=== PATIENT | male | born 1950 | race Caucasian/White ===

== ENCOUNTER 2022-07-20 09:57 | Outpatient (CLI) | payer MEDICARE, SELFPAY ==
[2022-07-20 11:52] LABS: Cholesterol* 134 mg/dL (90-199); Triglycerides* 50 mg/dL (40-149)
[2022-07-20 11:53] LABS: HDL Cholesterol* 69 mg/dL (>=40); LDL Cholesterol Calculated 55 mg/dL (<100)
== END 2022-07-20 09:58 | disposition home or self-care (01) ==
PROVIDERS: PCP Internal Medicine; Visit Provider Internal Medicine
DX: E78.5 Hyperlipidemia, unspecified (principal)
CPT/HCPCS: 80061

== ENCOUNTER 2023-05-20 10:15 | Outpatient (RCR) | payer MEDICARE, SELFPAY | END 2023-09-17 23:59 | disposition home or self-care (01) | PROVIDERS: PCP Internal Medicine; Visit Provider Internal Medicine | DX: M54.2 Cervicalgia (principal); M62.838 Other muscle spasm; Z74.09 Other reduced mobility; R29.898 Other symptoms and signs involving the musculoskeletal system; R29.3 Abnormal posture; Z51.89 Encounter for other specified aftercare | CPT/HCPCS: 97110; 97140; 97162 ==

== ENCOUNTER 2023-08-12 14:59 | Outpatient (CLI) | payer MEDICARE, SELFPAY | END 2023-08-12 15:00 | disposition home or self-care (01) | LOC: NFLDREF 15:00 | PROVIDERS: PCP Internal Medicine; Visit Provider Internal Medicine | DX: R10.13 Epigastric pain (principal) | CPT/HCPCS: 80053 ==

== ENCOUNTER 2023-08-24 07:41 | Outpatient (CLI) | payer MEDICARE, SELFPAY ==
--- NOTE | 2023-08-24 09:12 | W.ANESCHARGE ---
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
== END 2023-08-24 07:42 | disposition home or self-care (01) ==
LOC: OP CLINIC 07:42
PROVIDERS: PCP Internal Medicine; Visit Provider Internal Medicine
DX: R12 Heartburn (principal)
CPT/HCPCS: 00731; 43239; 88305; 99100; J2704

== ENCOUNTER 2023-09-07 09:57 | Outpatient (CLI) | payer MEDICARE, SELFPAY | END 2023-09-07 09:58 | disposition home or self-care (01) | LOC: NFLDREF 09-16 12:36 | PROVIDERS: PCP Internal Medicine; Referring Provider Internal Medicine; Visit Provider Internal Medicine | DX: E78.5 Hyperlipidemia, unspecified (principal) | CPT/HCPCS: 80061 ==

== ENCOUNTER 2023-12-13 09:50 | Outpatient (CLI) | payer MEDICARE, SELFPAY | END 2023-12-13 09:51 | disposition home or self-care (01) | LOC: NFLDREF 12-15 02:52 | PROVIDERS: PCP Internal Medicine; Referring Provider Internal Medicine; Visit Provider Internal Medicine | DX: E78.5 Hyperlipidemia, unspecified (principal) | CPT/HCPCS: 80061 ==

== ENCOUNTER 2024-09-11 09:26 | Outpatient (CLI) | payer MEDICARE, SELFPAY | END 2024-09-11 09:27 | disposition home or self-care (01) | LOC: NFLDREF 09-13 02:56 | PROVIDERS: PCP Internal Medicine; Referring Provider Internal Medicine; Visit Provider Internal Medicine | DX: E78.5 Hyperlipidemia, unspecified (principal) | CPT/HCPCS: 80061 ==

== ENCOUNTER 2024-10-13 09:06 | Outpatient (CLI) | payer MEDICARE, SELFPAY | END 2024-10-13 09:07 | disposition home or self-care (01) | LOC: NFLDREF 10-19 11:25 | PROVIDERS: PCP Internal Medicine; Referring Provider Internal Medicine; Visit Provider Internal Medicine | DX: E78.5 Hyperlipidemia, unspecified (principal) | CPT/HCPCS: 80061 ==

== ENCOUNTER 2024-11-09 07:55 | Outpatient (CLI) | payer MEDICARE, SELFPAY ==
--- NOTE | 2024-11-09 09:19 | P.ANES_ITS ---
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
--- NOTE | 2024-11-09 09:19 | W.ANESCHARGE ---
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
--- NOTE | 2024-11-09 10:12 | P.ANES_ITS ---
Anesthesia Charges Start Date/Time Anesthesia Start Date: 11/09/24 Anesthesia Start Time: 08:35 Stop Date/Time Anesthesia Stop Date: 11/09/24 Anesthesia Stop Time: 09:17 Summary Extremes of Age - Over 70 or under 1: MDA Coding CPT Codes CPT Codes: ANES LWR INTST NDSC NOS - 00362 ([id number]) P2 - PATIENT W/MILD SYST DISEASE, QK - LUMBER DRIVER 2-4 CNCRNT ANES PROC, QX - BILLING SUPERVISOR SVC W/ MD MED DIRECTION Additional Codes: Summary - Extremes of Age - Over 70 or under 1: MDA ([id number])
--- NOTE | 2024-11-09 10:12 | W.ANESCHARGE ---
Anesthesia Charges Start Date/Time Anesthesia Start Date: 11/09/24 Anesthesia Start Time: 08:35 Stop Date/Time Anesthesia Stop Date: 11/09/24 Anesthesia Stop Time: 09:17 Summary Extremes of Age - Over 70 or under 1: MDA Coding CPT Codes CPT Codes: ANES LWR INTST NDSC NOS - 43194 ([id number]) P2 - PATIENT W/MILD SYST DISEASE, QK - SENIOR SOFTWARE ENGINEERING MANAGER 2-4 CNCRNT ANES PROC, QX - FREIGHT CLERK SVC W/ MD MED DIRECTION Additional Codes: Summary - Extremes of Age - Over 70 or under 1: MDA ([id number])
--- OUTSIDE RECORDS SUMMARY | 2024-11-10 00:49 | XMS_ITS | Encounter Summary ---
Author Organization [facility] Address [address] [place] [address] Care Team Providers Care Concrete Mixer Operator Name Role Phone Kyle Benitez MD Primary Care Provider [phone] France Baptiste MD Primary Care Provider [phone] Kyle Benitez MD Primary Care Provider [phone] Angeles House MD Primary Care Provider Patito Herron DPM, Podiatry /Foot and Ankle Surgery Unavailable Reason for Visit * Reason Comments Refill Request zocor 20mg Encounter Details Date Type Department Care Team (Late st Contact Info) Description 10/08/2003 Refill M [address] [place] [address] Kyle Benitez MD XXX RESIGNED XXX [address] [place] [address] Refill Request (zocor 20mg) Social History Tobacco Use Types Packs/Day Years Used Date Smoking Tobacco: Never Alcohol Use Standard Drinks/Week Comments Yes 0 (1 standard drink = 0.6 oz pur e alcohol) occasional Sex and Gender Information Value Date Recorded Sex Assigned at Not on file 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 Thank you. * Telephone Encounter - 11/29/2003 8:31 AM CDTLast refill date 08/30/2003. * Telephone Encounter - 10/08/2003 4:41 PM CDTZocor no longer covered by insurance. would you be willing to switch to either crestor or Lipitor? Aleena RN * Telephone Encounter - 10/08/2003 4:39 PM CDTCALL RECEIVED. Contact: documented in this encounter Plan of Treatment Not on file documented as of this encounter Visit Diagnoses Not on filedocumented in this encounter Care Teams Concrete Mixer Operator Relationship Specialty Start Date End Date Kyle Benitez MD XXX RESIGNED XXX [address] [place] [phone] PCP - General 07/08/01 10/04/14 France Baptiste MD XXX RESIGNED XXX [address] [place] [phone] PCP - General Internal Medicine 10/05/14 10/16/14 Kyle Benitez MD XXX RESIGNED XXX [address] [place] [phone] PCP - General Internal Medicine 10/17/14 07/01/17 Angeles House MD [facility] - [address] [id number] PCP - General Internal Medicine 03/20/23 Patito Herron, SHILA, Podiatry/Foot and Ankle Surgery [address] [address] Assigned Musculoskeletal Provider 01/14/24 documented as of this encounter
--- OUTSIDE RECORDS SUMMARY | 2024-11-10 00:50 | XMS_ITS | Encounter Summary ---
Author Organization [facility] Address [address] [place] [address] Care Team Providers Care Production Hardener Name Role Phone Kyle Benitez MD Primary Care Provider [phone] France Baptiste MD Primary Care Provider [phone] Kyle Benitez MD Primary Care Provider [phone] Angeles House MD Primary Care Provider Patito Herron DPM, Podiatry /Foot and Ankle Surgery Unavailable Encounter Details Date Type Department Care Team (Late st Contact Info) Description 02/25/2014 [facility] Medical Advice [address] [place] [address] Kyle Benitez MD XXX RESIGNED XXX [address] [facility] [address] [place] [address] Social History Tobacco Use Types Packs/Day Years Used Date Smoking Tobacco: Never Smokeless Tobacco: Never Alcohol Use Standard Drinks/Week Comments Yes 0 (1 standard drink = 0.6 oz pur e alcohol) occasional Sex and Gender Information Value Date Recorded Sex Assigned at Not on file 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 Gender Identity Not on file Sexual Orientation Not on file documented as of this encounter Plan of Treatment Not on file documented as of this encounter Visit Diagnoses Not on filedocumented in this encounter Care Teams Production Hardener Relationship Specialty Start Date End Date Kyle Benitez MD XXX RESIGNED XXX [address] [place] [phone] PCP - General 07/08/01 10/04/14 France Baptiste MD XXX RESIGNED XXX [address] [place] [phone] PCP - General Internal Medicine 10/05/14 10/16/14 Kyle Benitez MD XXX RESIGNED XXX [address] [place] [phone] PCP - General Internal Medicine 10/17/14 07/01/17 Angeles House MD [facility] [address] [address] PCP - General Internal Medicine 03/20/23 Patito Herron DPM, Podiatry/Foot and Ankle Surgery [address] [place] [address] Assigned Musculoskeletal Provider 01/14/24 documented as of this encounter
--- OUTSIDE RECORDS SUMMARY | 2024-11-10 00:50 | XMS_ITS | Data Portability ---
Author Organization [facility], [employer] Address [address] [place] [address] Assessment Encounter Date Assessment Date Assessment LastModified by Organization Details LastModified Time 08/20/2020 08/20/2020 Discussed normal H.pylori test result with pt. Pt to RTC for fasting labs in September: CBC CMP Advanced lipids Urine for dipstick with reflex Patient understands and agrees w/ the plan. All questions addressed. [email or web address] Not available 08/23/2020 08:31:55 04/16/2021 04/16/2021 CBC, CMP, TSH + 4, T3, PSA, Advanced lipids [email or web address] Not available 04/16/2021 12:43:09 Plan of Treatment Reminders Order Date Submit Date Provider Last Modified By Organization Details Last Modified Time Details Appointments None recorded. Lab CBC w/ auto diff 2020 021 [facility] [facility], [address], [place], [address], 09:03:35 CMP, serum or plasma 2020 021 [employer] [facility], [address] [place], [address], 09:03:34 urinalysis, dipstick 2020 021 [facility] Main Office, [address], [address], [place], [address], 11:53:13 urinalysis, microscopic 2020 DAMON [employer] [facility], [address], [place], [address], 09:03:36 Referral None recorded. Procedures None recorded. Surgeries None recorded. Imaging None recorded. Medication Orders rosuvastati n 5 mg tablet 2020 [facility][id number], [address] [place], [place], [phone], 11:21:35 ezetimibe 10 mg tablet 2020 [facility] #[id number], [address] [place], [place], [id number], 11:21:10 Patient TargetsNo targets recorded. Patient InstructionsNo instructions recorded. Reason for Referral None Reported. Results Created Date Observation Date Name Description Value Unit Range Abnormal Flag Note LastModifiedBy Organization Detail LastModifiedTime 08/06/1908/07/2020 H pylor i urea breat h test, co2 infra red helicobacter pylori, urea breath test NOT DETECT ED not detect ed normal Antim icrob ials, anabel n pump inhib itors , and bismu th prepa ratio ns are known to suppr ess H. pylor i, and inges tion of these prior to H. pylor i diagn ostic testi ng may lead to false negat agustina resul ts. If clini court indic ated, the test may be repea joaquin on a new speci men obtai godwin two weeks after disco ntinu ing treat ment. Howev er, a posit agustina resul t is still clini court valid . Not Available [facility] [address], [place], [address], 08/07/2020 15:00:09 10/09/1910/09/2020 CMP, serum or plasm a glucose 94 mg/dL 65-99 normal Fasti ng refer ence inter ernie Not Available [facility] [place] [facility] [address], [place], [address], 10/09/2020 09:03:34 10/09/1910/09/2020 CMP, serum or plasm a urea nitrogen (BUN) 16 mg/dL 7-25 normal Not Available [facility] [address], [place], [address], 10/09/2020 09:03:34 10/09/19 21 10/09/2020 CMP, serum or plasm a creatinine 0.88 mg/dL 0.70-1 .18 normal For patie nts >49 years of age, the refer ence limit for Creat inine is appro ximat chidi 13% highe r for peopl e ident ified as Afric an-Am darshana n. Not Available [facility] [address], [place], [address], 10/09/2020 09:03:34 10/09/19 21 10/09/2020 CMP, serum or plasm a eGFR non-afr. azerbaijani 86 mL/mi n/1.7 3m2 > or = 60 normal Not Available [facility] [address], [place], [address], 10/09/2020 09:03:34 10/09/19 21 10/09/2020 CMP, serum or plasm a eGFR 99 mL/mi n/1.7 3m2 > or = 60 normal Not Available [facility] [address], [place], [address], 10/09/2020 09:03:34 10/09/1910/09/2020 CMP, serum or plasm a BUN/creatini ne ratio NOT APPLIC ABLE (calc ) 6-22 Not Available [facility] [address], [place], [address], 10/09/2020 09:03:34 10/09/19 21 10/09/2020 CMP, serum or plasm a sodium 139 mmol/ L 135-14 6 normal Not Available [facility] [address], [place], [address], 10/09/2020 09:03:34 10/09/19 21 10/09/2020 CMP, serum or plasm a potassium 4.2 mmol/ L 3.5-5. 3 normal Not Available [facility] [address], [place], [address], 10/09/2020 09:03:34 10/09/19 21 10/09/2020 CMP, serum or plasm a chloride 102 mmol/ L 98-110 normal Not Available [facility] [address], [place], [address], 10/09/2020 09:03:34 10/09/1910/09/2020 CMP, serum or plasm a carbon dioxide 28 mmol/ L 20-32 normal Not Available [facility] [address], [place], [address], 10/09/2020 09:03:34 10/09/1910/09/2020 CMP, serum or plasm a calcium 9.4 mg/dL 8.6-10 .3 normal Not Available [facility] [address], [place], [address], 10/09/2020 09:03:34 10/09/1910/09/2020 CMP, serum or plasm a protein, total 6.5 g/dL 6.1-8. 1 normal Not Available [facility] [address], [place], [address], 10/09/2020 09:03:34 10/09/1910/09/2020 CMP, serum or plasm a albumin 4.2 g/dL 3.6-5. 1 normal Not Available [facility] [address], [place], [address], 10/09/2020 09:03:34 10/09/19 21 10/09/2020 CMP, serum or plasm a globulin 2.3 g/dL_ (calc ) 1.9-3. 7 normal Not Available [facility] [address], [place], [address], 10/09/2020 09:03:34 10/09/19 21 10/09/2020 CMP, serum or plasm a albumin/glob ulin ratio 1.8 (calc ) 1.0-2. 5 normal Not Available [facility] [address], [place], [address], 10/09/2020 09:03:34 10/09/1910/09/2020 CMP, serum or plasm a bilirubin, total 0.7 mg/dL 0.2-1. 2 normal Not Available [facility] [address], [place], [address], 10/09/2020 09:03:34 10/09/1910/09/2020 CMP, serum or plasm a alkaline phosphatase 58 U/L 35-144 normal Not Available [facility] [employer] [facility] [address], [place], [address], 10/09/2020 09:03:34 10/09/1910/09/2020 CMP, serum or plasm a AST 24 U/L 10-35 normal Not Available [facility] [address], [place], [address], 10/09/2020 09:03:34 10/09/1910/09/2020 CMP, serum or plasm a ALT 32 U/L 9-46 normal Not Available [employer] [facility] [address], [place], [address], 10/09/2020 09:03:34 10/09/19 21 10/09/2020 CBC w/ auto diff white blood cell count 5.2 thous and/u L 3.8-10 .8 normal Not Available [facility] [address], [place], [address], 10/09/2020 09:03:35 10/09/19 21 10/09/2020 CBC w/ auto diff red blood cell count 5.05 mu on/uL 4.20-5 .80 normal Not Available [facility] [address], [place], [address], 10/09/2020 09:03:35 10/09/19 21 10/09/2020 CBC w/ auto diff hemoglobin 15.6 g/dL 13.2-1 7.1 normal Not Available [facility] [address], [place], [address], 10/09/2020 09:03:35 10/09/19 21 10/09/2020 CBC w/ auto diff hematocrit 47.1 % 38.5-5 0.0 normal Not Available [facility] [address], [place], [address], 10/09/2020 09:03:35 10/09/19 21 10/09/2020 CBC w/ auto diff MCV 93.3 fL 80.0-1 00.0 normal Not Available [facility] [address], [place], [address], 10/09/2020 09:03:35 10/09/19 21 10/09/2020 CBC w/ auto diff MCH 30.9 pg 27.0-3 3.0 normal Not Available [facility] [address], [place], [address], 10/09/2020 09:03:35 10/09/19 21 10/09/2020 CBC w/ auto diff MCHC 33.1 g/dL 32.0-3 6.0 normal Not Available [facility] [address], [place], [address], 10/09/2020 09:03:35 10/09/19 21 10/09/2020 CBC w/ auto diff RDW 13.1 % 11.0-1 5.0 normal Not Available [facility] [address], [place], [address], 10/09/2020 09:03:35 10/09/19 21 10/09/2020 CBC w/ auto diff platelet count 218 thous and/u L 140-40 0 normal Not Available [facility] [address], [place], [address], 10/09/2020 09:03:35 10/09/19 21 10/09/2020 CBC w/ auto diff MPV 9.2 fL 7.5-12 .5 normal Not Available [facility] [address], [place], [address], 10/09/2020 09:03:35 10/09/19 21 10/09/2020 CBC w/ auto diff absolute neutrophils 2964 cells /uL 1500-7 800 normal Not Available [facility] [address], [place], [address], 10/09/2020 09:03:35 10/09/19 21 10/09/2020 CBC w/ auto diff absolute lymphocytes 1482 cells /uL 850-39 00 normal Not Available [facility] [address], [place], [address], 10/09/2020 09:03:35 10/09/19 21 10/09/2020 CBC w/ auto diff absolute monocytes 551 cells /uL 200-95 0 normal Not Available [facility] [address], [place], [address], 10/09/2020 09:03:35 10/09/19 21 10/09/2020 CBC w/ auto diff absolute eosinophils 182 cells /uL 15-500 normal Not Available [facility] [address], [place], [address], 10/09/2020 09:03:35 10/09/19 21 10/09/2020 CBC w/ auto diff absolute basophils 21 cells /uL 0-200 normal Not Available [facility] [address], [place], [address], 10/09/2020 09:03:35 10/09/19 21 10/09/2020 CBC w/ auto diff neutrophils 57 % normal Not Available [facility] [address], [place], [address], 10/09/2020 09:03:35 10/09/19 21 10/09/2020 CBC w/ auto diff lymphocytes 28.5 % normal Not Available [facility] [address], [place], [address], 10/09/2020 09:03:35 10/09/19 21 10/09/2020 CBC w/ auto diff monocytes 10.6 % normal Not Available [facility] [address], [place], [address], 10/09/2020 09:03:35 10/09/19 21 10/09/2020 CBC w/ auto diff eosinophils 3.5 % normal Not Available [facility] [address], [place], [address], 10/09/2020 09:03:35 10/09/19 21 10/09/2020 CBC w/ auto diff basophils 0.4 % normal Not Available [facility] [address], [place], [address], 10/09/2020 09:03:35 10/09/19 21 10/09/2020 urina lysis , micro scopi c WBC NONE SEEN /hpf < or = 5 normal Not Available [facility] [address], [place], [address], 10/09/2020 09:03:36 10/09/19 21 10/09/2020 urina lysis , micro scopi c RBC NONE SEEN /hpf < or = 2 normal Not Available [facility] [address], [place], [address], 10/09/2020 09:03:36 10/09/19 21 10/09/2020 urina lysis , micro scopi c squamous epithelial cells NONE SEEN /hpf < or = 5 normal Not Available [facility] [address], [place], [address], 10/09/2020 09:03:36 10/09/19 21 10/09/2020 urina lysis , micro scopi c bacteria NONE SEEN /hpf none seen normal Not Available [facility] [address], [place], [address], 10/09/2020 09:03:36 10/09/19 21 10/09/2020 urina lysis , micro scopi c hyaline cast NONE SEEN /lpf none seen normal Not Available [facility] [address], [place], [address], 10/09/2020 09:03:36 10/09/19 21 10/13/2020 lipid panel , serum cholesterol, total 138 mg/dL <200 Not Available [facility] [address], [place], [address], 10/13/2020 16:00:46 10/09/19 21 10/13/2020 lipid panel , serum HDL cholesterol 61 mg/dL >39 Not Available [facility] [address], [place], [address], 10/13/2020 16:00:46 10/09/19 21 10/13/2020 lipid panel , serum triglyceride s 105 mg/dL <150 Not Available [facility] [address], [place], [address], 10/13/2020 16:00:46 10/09/19 21 10/13/2020 lipid panel , serum LDL-choleste rol 58 mg/dL _(nathan c) <100 Iraj able range <100 mg/dL for prima ry preve ntion ; <70 mg/dL for patie nts with CHD or diabe tic patie nts with >= 2 CHD risk facto rs. LDL-C is now calcu lated using the [facility] calcu latio n, which is a valid ated novel metho d provi ding spencer r accur acy than the Fried charles equat ion in the estim ation of LDL-C . Kerri n SS et al. ZAHEER. 2013; 310(1 9): 2060- 2067 (http ://ed ati on.Zoodak. [employer]/f aq/FA Q164) LDL-C is now calcu lated using the [facility] calcu latio n, which is a valid ated novel metho d provi ding spencer r accur acy than the Fried charles equat ion in the estim ation of LDL-C . Kerri n SS et al. ZAHEER. 2013; 310(1 9): 2060- 2067 (http ://ed ati on.Zoodak. [employer]/f aq/FA Q164) Not Available [facility] [place] [facility] [address], [place], [address], 10/13/2020 16:00:46 10/09/19 21 10/13/2020 lipid panel , serum chol/HDLC ratio 2.3 calc <3.6 Not Available [facility] [place] [facility] [address], [place], [address], 10/13/2020 16:00:46 10/09/1910/13/2020 lipid panel , serum non HDL cholesterol 77 mg/dL _(nathan c) <130 For patie nts with diabe salomón plus 1 major ASCVD risk facto r, treat ing to a non-H DL-C goal of <100 mg/dL (LDL- C of <70 mg/dL ) is consi dered a thera peuti c optio n. For patie nts with diabe salomón plus 1 major ASCVD risk facto r, treat ing to a non-H DL-C goal of <100 mg/dL (LDL- C of <70 mg/dL ) is consi dered a thera peuti c optio n. Not Available [facility] [place] [facility] [address], [place], [address], 10/13/2020 16:00:46 10/09/1910/13/2020 lipid panel , serum LDL particle number 925 nmol/ L <1138 Relat agustina Risk: Optim al <1138 ; Moder ate 1138- 1409; High >1409 . Refer ence Range : <1138 nmol/ L. Not Available [facility] [place] [facility] [address], [place], [address], 10/13/2020 16:00:46 10/09/1910/13/2020 lipid panel , serum LDL small 168 nmol/ L <142 high Relat agustina Risk: Optim al <142; Moder ate 142-2 19; High >219. Refer ence Range : <142 nmol/ L. Not Available [facility] [place] [facility] [address], [place], [address], 10/13/2020 16:00:46 10/09/1910/13/2020 lipid panel , serum LDL medium 194 nmol/ L <215 Relat agustina Risk: Optim al <215; Moder ate 215-3 01; High >301. Refer ence Range : <215 nmol/ L. Not Available [facility] [place] [facility] [address], [place], [address], 10/13/2020 16:00:46 10/09/19 21 10/13/2020 lipid panel , serum HDL large 6555 nmol/ L >6729 low Relat agustina Risk: Optim al >6729 ; Moder ate 6729- 5353; High <5353 . Refer ence Range : >6729 nmol/ L. Not Available [facility] [place] [facility] [address], [place], [address], 10/13/2020 16:00:46 10/09/19 21 10/13/2020 lipid panel , serum LDL pattern A patte rn A Relat agustina Risk: Optim al Patte rn A; High Patte rn B. Refer ence Range : Patte rn A. Not Available [facility] [place] [facility] [address], [place], [address], 10/13/2020 16:00:46 10/09/19 21 10/13/2020 lipid panel , serum LDL peak size 218.7 angst rom >222.9 low Relat agustina Risk: Optim al >222. 9; Moder ate 222.9 -217. 4; High <217. 4. Refer ence Range : >222. 9 Angst rom. Adult cardi ovasc ular event risk categ ory cut point s (opti mal, moder ate, high) are based on an adult [place] refer ence popul ation plus two large cohor t study popul ation s. Assoc iatio n betwe en lipop rotei n subfr actio ns and cardi ovasc ular event s is based on Ronda moore et al. ATVB. 2009; 29:19 75. For addit ional infor starr gilliam e refer to http: //anjelica hobson.Que stDia gnost ics.c om/fa q/FAQ 134 (This link is being provi ded for infor may nal/e ducat ional purpo ses only. ) This test is perfo rmed by an [employer] gorge antony This test was devel oped and its perfo rmanc e phoebe cteri stics deter mined by [facility] It has not been clear ed or appro kp by the U.S. FDA. [facility] is regul ated under Clini nathan Labor atory Impro vemen t Amend ments (CLIA ) as quali fied to perfo rm high- compl exity testi ng. This test is used for clini nathan purpo ses. It shoul d not be regar ded as inves tigat ional or for resea rch. Not Available [facility] [place] [facility] [address], [place], [address], 10/13/2020 16:00:46 10/09/19 21 10/13/2020 lipid panel , serum apolipoprote in B 64 mg/dL <90 Risk: Optim al <90 mg/dL ; Moder ate 90-11 9 mg/dL ; High >= 120 mg/dL ; Cardi ovasc ular event risk categ ory cut point s (opti mal, moder ate, high) are based on Natio nal Lipid Assoc iatio n recom primo huertas TA et al. J of Clin Lipid . 2015; 9: 129-1 69 and Joy JOHNSON et al. Endoc r Pract . 2017; 23([place] ppl 2):1- 87. Not Available [facility] [place] [facility] [address], [place], [address], 10/13/2020 16:00:46 10/09/19 21 10/13/2020 lipid panel , serum lipoprotein (A) 35 nmol/ L <75 Risk: Optim al <75 nmol/ L; Moder ate 75-12 5 nmol/ L; High >125 nmol/ L. Cardi ovasc ular event risk categ ory cut point s (opti mal, moder ate, high) are based on Eddie Cantu. JACC 2017; 69:69 2-711 . Not Available [facility] [place] [facility] [address], [place], [address], 10/13/2020 16:00:46 05/1810/13/2020 lipid panel , serum hs CRP 1.3 mg/L <1.0 high The AHA/C DC Guide lines recom mend hs-CR P range s for ident ifyin g Relat agustina Cardi ovasc ular Risk in patie nts ages >17 years : <1.0 mg/L Lower Relat agustina Cardi ovasc ular Risk; 1.0-3 .0 mg/L [place] ge Relat agustina Cardi ovasc ular Risk; 3.1-1 0.0 mg/L Highe r Relat agustina Cardi ovasc ular Risk. For patie nts with highe r cardi ovasc ular risk, consi ruth retes ting in 1-2 weeks to exclu de a benig n trans ient eleva tion secon erika to infec tion or infla mmati on from the basel ine CRP value . Persi stent eleva tions of >10.0 mg/L upon retes ting may be assoc iated with infec tion and infla mmati on. The AHA/C DC recom menda tions are based on Pears on TA et al. Circu latio n. 2003; 107:4 99-51 1. For ages >17 Years : hs-CR P mg/L Risk Accor ding to AHA/C DC Guide lines <1.0 Lower relat agsutina cardi ovasc ular risk. 1.0-3 .0 [place] ge relat agustina cardi ovasc ular risk. 3.1-1 0.0 Highe r relat agustina cardi ovasc ular risk. Consi ruth retes ting in 1 to 2 weeks to exclu de a benig n trans ient eleva tion in the basel ine CRP value secon erika to infec tion or infla mmati on. >10.0 Persi stent eleva tion, upon retes ting, may be assoc iated with infec tion and infla mmati on. Not Available [facility] [place] [facility] [facility] [address], [place], [address], 10/13/2020 16:00:46 10/09/1910/13/2020 lipid panel , serum LP pla2 activity 75 nmol/ min/m L <124 Relat agustina Risk: Optim al <=123 nmol/ min/m L; High >123 nmol/ min/m L.Thi s test is perfo rmed by an enzym scott antony This test was devliliana mistryed and its perfo rmanc e phoebe cteri stics deter mined by [facility]. It has not been clear ed or appro kp by the [place].S. FDA. [facility] is regul ated under Clini nathan Labor atory Impro vemen t Amend ments (CLIA ) as quali fied to perfo rm high- compl exity testi ng. This test is used for clini nathan purpo ses. It shoul d not be regar ded as inves tigat ional or for resea rch. Not Available [facility] [place] [facility] [address], [place], [address], 10/13/2020 16:00:46 10/09/19 21 10/08/2020 urina lysis , dipst ick Glucose - Negati ve Not Available Main Office [address], [place], [address], 10/04/2020 14:51:28 10/09/19 21 10/08/2020 urina lysis , dipst ick Bilirubin - Negati ve Not Available Main Office [address], [place], [address], 10/04/2020 14:51:28 10/09/19 21 10/08/2020 urina lysis , dipst ick Ketone - Negati ve Not Available Main Office [address], [place], [address], 10/04/2020 14:51:28 10/09/19 21 10/08/2020 urina lysis , dipst ick Specific [place] 1.010 Not Available Main O ffice [address], [place], [address], 10/04/2020 14:51:28 10/09/19 21 10/08/2020 urina lysis , dipst ick Blood +/- Not Available Main Offic e [address], [place], [address], 10/04/2020 14:51:28 10/09/19 21 10/08/2020 urina lysis , dipst ick pH 6.0 Not Available Main Offic e [address], [place], [address], 10/04/2020 14:51:28 10/09/19 21 10/08/2020 urina lysis , dipst ick Protein - Negati ve Not Available Main Office [address], [place], [address], 10/04/2020 14:51:28 10/09/19 21 10/08/2020 urina lysis , dipst ick Urobilinogen 0.2(3. 5) Not Available Main Office [address], [place], [address], 10/04/2020 14:51:28 10/09/19 21 10/08/2020 urina lysis , dipst ick Nitrite - Negati ve Not Available Main Office [address], [place], [address], 10/04/2020 14:51:28 10/09/19 21 10/08/2020 urina lysis , dipst ick Leukocytes - Not Available Main Of fice [address], [place], [address], 10/04/2020 14:51:28 10/09/19 21 10/08/2020 urina lysis , dipst ick Appearance Clear Not Available Main Of fice [address], [place], [address], 10/04/2020 14:51:28 10/09/19 21 10/08/2020 urina lysis , dipst ick Color Yellow Not Available Main Offic e [address], [place], [address], 10/04/2020 14:51:28 04/16/20 21 04/17/2021 TSH+F REE T4 TSH 1.52 mIU/L 0.40-4 .50 normal Not Available [facility] [address], [place], [address], 04/17/2021 09:44:28 04/16/20 21 04/17/2021 TSH+F REE T4 T4, free 1.0 NG/dL 0.8-1. 8 normal Not Available [facility] [address], [place], [address], 04/17/2021 09:44:28 04/16/20 21 04/17/2021 COMPR EHENS AGUSTINA METAB OLIC PANEL glucose 77 mg/dL 65-99 normal Fasti ng refer ence inter ernie Not Available [facility] [address], [place], [address], 04/17/2021 09:44:29 04/16/20 21 04/17/2021 COMPR EHENS AGUSTINA METAB OLIC PANEL urea nitrogen (BUN) 16 mg/dL 7-25 normal Not Available [facility] [address], [place], [address], 04/17/2021 09:44:29 04/16/20 21 04/17/2021 COMPR EHENS AGUSTINA METAB OLIC PANEL creatinine 0.83 mg/dL 0.70-1 .18 normal For patie nts >49 years of age, the refer ence limit for Creat inine is appro ximat chidi 13% highe r for peopl e ident ified as Afric an-Am darshana n. Not Available [facility] [facility] [address], [place], [address], 04/17/2021 09:44:29 04/16/20 21 04/17/2021 COMPR EHENS AGUSTINA METAB OLIC PANEL eGFR non-afr. azerbaijani 88 mL/mi n/1.7 3m2 > or = 60 normal Not Available [facility] [address], [place], [address], 04/17/2021 09:44:29 04/16/20 21 04/17/2021 COMPR EHENS AGUSTINA METAB OLIC PANEL eGFR 102 mL/mi n/1.7 3m2 > or = 60 normal Not Available [facility] [address], [place], [address], 04/17/2021 09:44:29 04/16/20 21 04/17/2021 COMPR EHENS AGUSTINA METAB OLIC PANEL BUN/creatini ne ratio NOT APPLIC ABLE (calc ) 6-22 Not Available [facility] [address], [place], [address], 04/17/2021 09:44:29 04/16/20 21 04/17/2021 COMPR EHENS AGUSTINA METAB OLIC PANEL sodium 139 mmol/ L 135-14 6 normal Not Available [facility] [address], [place], [address], 04/17/2021 09:44:29 04/16/20 21 04/17/2021 COMPR EHENS AGUSTINA METAB OLIC PANEL potassium 4.9 mmol/ L 3.5-5. 3 normal Not Available [facility] [address], [place], [address], 04/17/2021 09:44:29 04/16/20 21 04/17/2021 COMPR EHENS AGUSTINA METAB OLIC PANEL chloride 103 mmol/ L 98-110 normal Not Available [facility] [address], [place], [address], 04/17/2021 09:44:29 04/16/20 21 04/17/2021 COMPR EHENS AGUSTINA METAB OLIC PANEL carbon dioxide 29 mmol/ L 20-32 normal Not Available [facility] [address], [place], [address], 04/17/2021 09:44:29 04/16/20 21 04/17/2021 COMPR EHENS AGUSTINA METAB OLIC PANEL calcium 9.0 mg/dL 8.6-10 .3 normal Not Available [facility] [address], [place], [address], 04/17/2021 09:44:29 04/16/20 21 04/17/2021 COMPR EHENS AGUSTINA METAB OLIC PANEL protein, total 6.4 g/dL 6.1-8. 1 normal Not Available [facility] [address], [place], [address], 04/17/2021 09:44:29 04/16/20 21 04/17/2021 COMPR EHENS AGUSTINA METAB OLIC PANEL albumin 4.2 g/dL 3.6-5. 1 normal Not Available [facility] [address], [place], [address], 04/17/2021 09:44:29 04/16/20 21 04/17/2021 COMPR EHENS AGUSTINA METAB OLIC PANEL globulin 2.2 g/dL_ (calc ) 1.9-3. 7 normal Not Available [facility] [address], [place], [address], 04/17/2021 09:44:29 04/16/20 21 04/17/2021 COMPR EHENS AGUSTINA METAB OLIC PANEL albumin/glob ulin ratio 1.9 (calc ) 1.0-2. 5 normal Not Available [facility] [address], [place], [address], 04/17/2021 09:44:29 04/16/20 21 04/17/2021 COMPR EHENS AGUSTINA METAB OLIC PANEL bilirubin, total 0.7 mg/dL 0.2-1. 2 normal Not Available [facility] [address], [place], [address], 04/17/2021 09:44:29 04/16/20 21 04/17/2021 COMPR EHENS AGUSTINA METAB OLIC PANEL alkaline phosphatase 65 U/L 35-144 normal Not Available [facility] [employer] [facility] [address], [place], [address], 04/17/2021 09:44:29 04/16/20 21 04/17/2021 COMPR EHENS AGUSTINA METAB OLIC PANEL AST 26 U/L 10-35 normal Not Available [facility] [address], [place], [address], 04/17/2021 09:44:29 04/16/20 21 04/17/2021 COMPR EHENS AGUSTINA METAB OLIC PANEL ALT 27 U/L 9-46 normal Not Available [facility] [address], [place], [address], 04/17/2021 09:44:29 04/16/20 21 04/17/2021 T3, TOTAL T3, total 137 NG/dL 76-181 normal Not Available [facility] [address], [place], [address], 04/17/2021 09:44:30 04/16/20 21 04/17/2021 CBC (INCL UDES DIFF/ PLT) white blood cell count 4.9 thous and/u L 3.8-10 .8 normal Not Available [facility] [address], [place], [address], 04/17/2021 09:44:31 04/16/20 21 04/17/2021 CBC (INCL UDES DIFF/ PLT) red blood cell count 5.06 mu on/uL 4.20-5 .80 normal Not Available [facility] [address], [place], [address], 04/17/2021 09:44:31 04/16/20 21 04/17/2021 CBC (INCL UDES DIFF/ PLT) hemoglobin 15.6 g/dL 13.2-1 7.1 normal Not Available [facility] [address], [place], [address], 04/17/2021 09:44:31 04/16/2004/17/2021 CBC (INCL UDES DIFF/ PLT) hematocrit 46.4 % 38.5-5 0.0 normal Not Available [facility] [address], [place], [address], 04/17/2021 09:44:31 04/16/20 21 04/17/2021 CBC (INCL UDES DIFF/ PLT) MCV 91.7 fL 80.0-1 00.0 normal Not Available [facility] [address], [place], [address], 04/17/2021 09:44:31 04/16/2004/17/2021 CBC (INCL UDES DIFF/ PLT) MCH 30.8 pg 27.0-3 3.0 normal Not Available [facility] [address], [place], [address], 04/17/2021 09:44:31 04/16/2004/17/2021 CBC (INCL UDES DIFF/ PLT) MCHC 33.6 g/dL 32.0-3 6.0 normal Not Available [facility] [address], [place], [address], 04/17/2021 09:44:31 04/16/20 21 04/17/2021 CBC (INCL UDES DIFF/ PLT) RDW 11.8 % 11.0-1 5.0 normal Not Available [facility] [address], [place], [address], 04/17/2021 09:44:31 04/16/20 21 04/17/2021 CBC (INCL UDES DIFF/ PLT) platelet count 258 thous and/u L 140-40 0 normal Not Available [facility] [address], [place], [address], 04/17/2021 09:44:31 04/16/20 21 04/17/2021 CBC (INCL UDES DIFF/ PLT) MPV 9.0 fL 7.5-12 .5 normal Not Available [facility] [address], [place], [address], 04/17/2021 09:44:31 04/16/20 21 04/17/2021 CBC (INCL UDES DIFF/ PLT) absolute neutrophils 2862 cells /uL 1500-7 800 normal Not Available [facility] [address], [place], [address], 04/17/2021 09:44:31 04/16/20 21 04/17/2021 CBC (INCL UDES DIFF/ PLT) absolute lymphocytes 1343 cells /uL 850-39 00 normal Not Available [facility] [address], [place], [address], 04/17/2021 09:44:31 04/16/20 21 04/17/2021 CBC (INCL UDES DIFF/ PLT) absolute monocytes 485 cells /uL 200-95 0 normal Not Available [facility] [address], [place], [address], 04/17/2021 09:44:31 04/16/20 21 04/17/2021 CBC (INCL UDES DIFF/ PLT) absolute eosinophils 191 cells /uL 15-500 normal Not Available [facility] [address], [place], [address], 04/17/2021 09:44:31 04/16/20 21 04/17/2021 CBC (INCL UDES DIFF/ PLT) absolute basophils 20 cells /uL 0-200 normal Not Available [facility] [address], [place], [address], 04/17/2021 09:44:31 04/16/20 21 04/17/2021 CBC (INCL UDES DIFF/ PLT) neutrophils 58.4 % normal Not Available [facility] [address], [place], [address], 04/17/2021 09:44:31 04/16/20 21 04/17/2021 CBC (INCL UDES DIFF/ PLT) lymphocytes 27.4 % normal Not Available [facility] [address], [place], [address], 04/17/2021 09:44:31 04/16/20 21 04/17/2021 CBC (INCL UDES DIFF/ PLT) monocytes 9.9 % normal Not Available [facility] [place] [facility] [address], [place], [address], 04/17/2021 09:44:31 04/16/20 21 04/17/2021 CBC (INCL UDES DIFF/ PLT) eosinophils 3.9 % normal Not Available [facility] [address], [place], [address], 04/17/2021 09:44:31 04/16/20 21 04/17/2021 CBC (INCL UDES DIFF/ PLT) basophils 0.4 % normal Not Available [facility] [address], [place], [address], 04/17/2021 09:44:31 04/16/20 21 04/17/2021 PSA, TOTAL PSA, total 4.56 NG/mL < or = 4.00 high The total PSA value from this assay syste m is stand ardiz ed again st the WHO stand louise. The test resul t will be appro ximat chidi 20% lower when carolyn red to the equim olar- stand ardiz ed total PSA (Haas man Coult er). Carolyn rison of seria l PSA resul ts shoul d be inter prete d with this fact in mind. This test was perfo rmed using the [employer] chemi lumin escen t metho d. Value s obtai godwin from diffe rent assay metho ds canno t be used inter jacob eably . PSA level s, regar dless of value , shoul d not be inter prete d as absol lilli evide nce of the prese nce or absen ce of disea se. Not Available [facility] [address], [place], [address], 04/17/2021 09:44:32 04/16/20 21 04/24/2021 ADVAN WILLIAM LIPID PNL W/INF LAMMA TION, CARDI O IQ(R) cholesterol, total 119 mg/dL <200 Not Available [facility] [address], [place], [address], 04/24/2021 14:07:26 04/16/20 21 04/24/2021 ADVAN WILLIAM LIPID PNL W/INF LAMMA TION, CARDI O IQ(R) HDL cholesterol 57 mg/dL >39 Not Available [facility] [place] [facility] [address], [place], [address], 04/24/2021 14:07:26 04/16/20 21 04/24/2021 ADVAN WILLIAM LIPID PNL W/INF LAMMA TION, CARDI O IQ(R) triglyceride s 62 mg/dL <150 Not Available [facility] [address], [place], [address], 04/24/2021 14:07:26 04/16/20 21 04/24/2021 ADVAN WILLIAM LIPID PNL W/INF LAMMA TION, CARDI O IQ(R) LDL-choleste rol 48 mg/dL _(nathan c) <100 Iraj able range <100 mg/dL for prima ry preve ntion ; <70 mg/dL for patie nts with CHD or diabe tic patie nts with >= 2 CHD risk facto rs. LDL-C is now calcu lated using the [employer] calcu latio n, which is a valid ated novel metho d provi ding spencer r accur acy than the Fried charles equat ion in the estim ation of LDL-C . Kerri n SS et al. ZAHEER. 2013; 310(1 9): 2060- 2067 (http ://ed ati [employer]. [employer]/f aq/FA Q164) LDL-C is now calcu lated using the [employer] calcu latio n, which is a valid ated novel metho d provi ding spencer r accur acy than the Fried charles equat ion in the estim ation of LDL-C . Kerri n SS et al. ZAHEER. 2013; 310(1 9): 2060- 2067 (http ://ed [facility] on.[employer]. [employer]/f aq/FA Q164) Not Available [facility] [address], [place], [address], 04/24/2021 14:07:26 04/16/20 21 04/24/2021 ADVAN WILLIAM LIPID PNL W/INF LAMMA TION, CARDI O IQ(R) chol/HDLC ratio 2.1 calc <3.6 Not Available [facility] [place] [facility] [address], [place], [address], 04/24/2021 14:07:26 04/16/20 21 04/24/2021 ADVAN WILLIAM LIPID PNL W/INF LAMMA TION, CARDI O IQ(R) non HDL cholesterol 62 mg/dL _(nathan c) <130 For patie nts with diabe salomón plus 1 major ASCVD risk facto r, treat ing to a non-H DL-C goal of <100 mg/dL (LDL- C of <70 mg/dL ) is consi dered ajit thera peuti c optio n. For patie nts with diabe salomón plus 1 major ASCVD risk facto r, treat ing to a non-H DL-C goal of <100 mg/dL (LDL- C of <70 mg/dL ) is consi dered ajit thera peuti c optio n. Not Available [facility] [place] [facility] [address], [place], [address], 04/24/2021 14:07:26 04/16/2004/24/2021 ADVAN WILLIAM LIPID PNL W/INF LAMMA TION, CARDI O IQ(R) LDL particle number 1111 nmol/ L <1138 Relat agustina Risk: Optim al <1138 ; Moder ate 1138- 1409; High >1409 . Refer ence Range : <1138 nmol/ L. Not Available [facility] [place] [facility] [address], [place], [address], 04/24/2021 14:07:26 04/16/20 21 04/24/2021 ADVAN WILLIAM LIPID PNL W/INF LAMMA TION, CARDI O IQ(R) LDL small 194 nmol/ L <142 high Relat agustina Risk: Optim al <142; Moder ate 142-2 19; High >219. Refer ence Range : <142 nmol/ L. Not Available [facility] [place] [facility] [address], [place], [address], 04/24/2021 14:07:26 04/16/2004/24/2021 ADVAN WILLIAM LIPID PNL W/INF LAMMA TION, CARDI O IQ(R) LDL medium 220 nmol/ L <215 high Relat agustina Risk: Optim al <215; Moder ate 215-3 01; High >301. Refer ence Range : <215 nmol/ L. Not Available [facility] [place] [facility] [address], [place], [address], 04/24/2021 14:07:26 04/16/20 21 04/24/2021 ADVAN WILLIAM LIPID PNL W/INF LAMMA TION, CARDI O IQ(R) HDL large 8607 nmol/ L >6729 Relat agustina Risk: Optim al >6729 ; Moder ate 6729- 5353; High <5353 . Refer ence Range : >6729 nmol/ L. Not Available [facility] [place] [facility] [address], [place], [address], 04/24/2021 14:07:26 04/16/20 21 04/24/2021 ADVAN WILLIAM LIPID PNL W/INF LAMMA TION, CARDI O IQ(R) LDL pattern A patte rn A Relat agustina Risk: Optim al Patte rn A; High Patte rn B. Refer ence Range : Patte rn A. Not Available [facility] [place] [facility] [address], [place], [address], 04/24/2021 14:07:26 04/16/20 21 04/24/2021 ADVAN WILLIAM LIPID PNL W/INF LAMMA TION, CARDI O IQ(R) LDL peak size 219.3 angst rom >222.9 low Relat agustina Risk: Optim al >222. 9; Moder ate 222.9 -217. 4; High <217. 4. Refer ence Range : >222. 9 Angst rom. Adult cardi ovasc ular event risk categ ory cut point s (opti mal, moder ate, high) are based on an adult [place] refer ence popul ation plus two large cohor t study popul ation s. Assoc iatio n betwe en lipop rotei n subfr actio ns and cardi ovasc ular event s is based on Ronda moore et al. ATVB. 2009; 29:19 75. For addit ional infor may hobson, starr e refer to http: //edu erin n.Que stDia gnost ics.c om/fa q/FAQ 134 (This link is being provi ded for infor matio nal/e ducat ional purpo ses only. ) This test is perfo rmed by an [employer] gorge heredia. This test was devel oped and its perfo rmanc e phoebe cteri stics deter mined by [facility] It has not been clear ed or appro kp by the U.[place]. FDA. [facility] is regul ated under Clini nathan Labor atory Impro vemen t Amend ments (CLIA ) as quali fied to perfo rm high- compl exity testi ng. This test is used for clini nathan purpo ses. It shoul d not be regar ded as inves tigat ional or for resea rch. Not Available [facility] [place] [facility] [address], [place], [address], 04/24/2021 14:07:26 04/16/20 21 04/24/2021 ADVAN WILLIAM LIPID PNL W/INF LAMMA TION, CARDI O IQ(R) apolipoprote in B 53 mg/dL <90 Risk: Optim al <90 mg/dL ; Moder ate 90-11 9 mg/dL ; High >= 120 mg/dL ; Cardi ovasc ular event risk categ ory cut point s (opti mal, moder ate, high) are based on Natio nal Lipid Assoc iatio n recom menda tions - Franky huertas TA et al. J of Clin Lipid . 2015; 9: 129-1 69 and Joy JOHNSON et al. Endoc r Pract . 2017; 23([place] ppl 2):1- 87. Not Available [facility] [place] [facility] [address], [place], [address], 04/24/2021 14:07:26 04/16/20 21 04/24/2021 ADVAN WILLIAM LIPID PNL W/INF LAMMA TION, CARDI O IQ(R) lipoprotein (A) 26 nmol/ L <75 Risk: Optim al <75 nmol/ L; Moder ate 75-12 5 nmol/ L; High >125 nmol/ L. Cardi ovasc ular event risk categ ory cut point s (opti mal, moder ate, high) are based on Eddie Cantu. [facility] 2017; 69:69 2-711 . Not Available [facility] [place] [facility] [address], [place], [address], 04/24/2021 14:07:26 04/16/20 21 04/24/2021 ADVAN WILLIAM LIPID PNL W/INF LAMMA TION, CARDI O IQ(R) hs CRP 1.1 mg/L <1.0 high The AHA/C DC Guide lines recom mend hs-CR P range s for ident ifyin g Relat agustina Cardi ovasc ular Risk in patie nts ages >17 years : <1.0 mg/L Lower Relat agustina Cardi ovasc ular Risk; 1.0-3 .0 mg/L [place] Relat agustina Cardi ovasc ular Risk; 3.1-1 0.0 mg/L Highe r Relat agustina Cardi ovasc ular Risk. For patie nts with highe r cardi ovasc ular risk, consi ruth retes ting in 1-2 weeks to exclu de a benig n trans ient eleva tion secon erika to infec tion or infla mmati on from the basel ine CRP value . Persi stent eleva tions of >10.0 mg/L upon retes ting may be assoc iated with infec tion and infla mmati on. The AHA/C DC recom menda tions are based on Mike on TA et al. Circu latio n. 2003; 107:4 99-51 1. For ages >17 Years : hs-CR P mg/L Risk Accor ding to AHA/C DC Guide lines <1.0 Lower relat agustina cardi ovasc ular risk. 1.0-3 .0 [place] ge relat agustina cardi ovasc ular risk. 3.1-1 0.0 Hig[place] r relat agustina cardi ovasc ular risk. Consi ruth retes ting in 1 to 2 weeks to exclu de a benig n trans ient eleva tion in the basel ine CRP value secon erika to infec tion or infla mmati on. >10.0 Persi stent eleva tion, upon retes ting, may be assoc iated with infec tion and infla mmati on. Not Available [facility] [place] [facility] [address], [place], [address], 04/24/2021 14:07:26 04/16/20 21 04/24/2021 ADVAN WILLIAM LIPID PNL W/INF LAMMA TION, CARDI O IQ(R) LP pla2 activity 63 nmol/ min/m L <124 Relat agustina Risk: Optim al <=123 nmol/ min/m L; High >123 nmol/ min/m L.Thi s test is perfo rmed by an enzym atic methpaula heredia. This test was devel oped and its perfo rmanc e phoebe cteri stics deter mined by [facility] It has not been clear ed or appro kp by the U.S. FDA. [facility] is regul ated under Clini nathan Labor atory Impro vemen t Amend ments (CLIA ) as quali fied to perfo rm high- compl exity testi ng. This test is used for clini nathan purpo ses. It shoul d not be regar ded as inves tigat ional or for resea rch. See Note 1 Note 1 This test was devel oped and its navin tical perfo rmanc e phoebe cteri stics have been deter mined by [facility]. It has not been clear ed or appro kp by the FDA. This assay has been valid ated pursu ant to the CLIA regul ation s and is used for clini nathan purpo ses. Not Available [facility] [place] [facility] [address], [place], [address], 04/24/2021 14:07:26 08/06/19 21 08/05/2020 CT, abdom en + pelvi s, w/ contr ast No observ ation record ed. [facility] [address] [facility] [address], [place], [address], 08/06/2020 10:43:12 Result Notes None recorded. Problems Name Problem SNOMED Code Status Onset Date Resolution Date Notes Provider Name and Address Organization Details Recorded Time Hyperchol esterolem ia 14601791 Active 2016 Hoa Robbins [facility] 7 12:31:16 Carpal tunnel syndrome 47364185 Completed 201305/24/2013 Hoa Robbins [facility] 7 12:34:22 Tendiniti s 60141512 Completed 201106/17/2016 right elbow Hoaethan Myrickole [facility] 7 12:34:59 Insomnia 799987869 Active 2020 Mahogany Macario [facility] 1 10:13:34 Problem Notes None recorded. Procedures Surgical History Date Name Laterality Status Provider Name and Address Organization Details Recorded Time 0 Other completed [facility] 03/18/2017 14:14:08 5 Other completed [facility] 03/18/2017 14:14:08 2 Back Surgery completed [facility] 03/18/2017 14:14:08 8 Other completed [facility] 03/18/2017 14:14:08 Imaging Results None recorded. Procedure Notes None recorded. Medical Equipment None Reported. Allergies Allergen ID Allergen Name Allergen Category Reaction Reaction Severity Criticality Documentation Date Start Date Code Code System Note Provider Name and Address Organization Details Recorded Time 426 Flomax medicatio n headache Not available Not available 06/17/2016 80294 3 RxNorm Gerri Robbins [facility] 7 12:23:48 Medications Name Sig Start Date Stop Date Status Note LastModified by Organization Details LastModified Time bupropion HCl SR 150 mg tablet,12 hr sustained-r elease TAKE 1 TABLET BY MOUTH TWICE DAILY 2021 active Not Available Not Available Not Avai lable benzonatate 200 mg capsule TAKE ONE CAPSULE BY MOUTH THREE TIMES A DAY FOR 10 DAYS 03/23 completed Not Available Not Available Not Available valacyclovi r 1 gram tablet 04/24 completed Not Available Not Available Not Available hydrocodone 5 mg-acetamin ophen 325 mg tablet TAKE ONE TABLET BY MOUTH EVERY 4 TO 6 HOURS NEEDED FOR PAIN 03/23 completed Not Available Not Available Not Available meloxicam 15 mg tablet TAKE 1 TABLET BY MOUTH EVERY DAY FOR 21 DAYS 08/06 completed Not Available Not Available Not Available doxycycline hyclate 50 mg capsule 04/24 completed Not Available Not Available Not Available hydrocodone 10 mg-acetamin ophen 325 mg tablet Take 1 tablet every 6 hours by oral route. 03/18 completed Not Available Not Available Not Available triamcinolo ne acetonide 0.1 % topical cream active Not Available Not Available Not Available oxycodone-a cetaminophe n 5 mg-325 mg tablet TAKE 1 TO 2 TABLETS BY MOUTH EVERY 4 TO 6 HOURS NEEDED FOR PAIN 08/06 completed Not Available Not Available Not Available temazepam 15 mg capsule TAKE 1 CAPSULE BY MOUTH EVERY DAY AT BEDTIME active Not Available Not Available No t Available gemfibrozil 600 mg tablet Take 1 tablet twice a day by oral route. 04/24 completed Not Available Not Available Not Available cephalexin 500 mg capsule TAKE 1 CAPSULE BY MOUTH FOUR TIMES DAILY 03/31 completed Not Available Not Available Not Available oseltamivir 75 mg capsule TAKE ONE CAPSULE BY MOUTH TWICE A DAY FOR 5 DAYS 03/23 completed Not Available Not Available Not Available oxybutynin chloride ER 5 mg tablet,exte nded release 24 hr 04/24 completed Not Available Not Available Not Available diazepam 10 mg tablet Take 1 tablet 3 times a day by oral route as needed. 07/11 completed Not Available Not Available Not Available methylpredn isolone 4 mg tablets in a dose pack FOLLOW PACKAGE DIRECTION S 08/06 completed Not Available Not Available Not Available amoxicillin 500 mg-potassiu m clavulanate 125 mg tablet TAKE 1 TABLET BY MOUTH EVERY 12 HOURS 08/06 completed Not Available Not Available Not Available bupropion HCl SR 200 mg tablet,12 hr sustained-r elease 04/24 completed Not Available Not Available Not Available ezetimibe 10 mg tablet TAKE 1 TABLET BY MOUTH DAILY active Not Available Not Available No t Available cyclobenzap rine 5 mg tablet Take 1 tablet 3 times a day by oral route. 03/18 completed Not Available Not Available Not Available rosuvastati n 5 mg tablet TAKE 1 TABLET BY MOUTH DAILY active Not Available Not Available No t Available bupropion HCl XL 150 mg 24 hr tablet, extended release Take 3 tablets every day by oral route for 90 days. 04/24 completed Not Available Not Available Not Available Miralax active Not Available Not Avail able Not Available Zetia 04/24 completed Not Available Not Available Not Available diclofenac 1 % topical gel APPLY 2 GRAMS TO AFFECTED AREA FOUR TIMES A DAY active used prn Not Available Not Available Not Available GaviLyte-G 236 gram-22.74 gram-6.74 gram-5.86 gram oral solution 04/24 completed Not Available Not Available Not Available Suprep Bowel Prep Kit 17.5 gram-3.13 gram-1.6 gram oral solution 08/20 completed Not Available Not Available Not Available bupropion HCl 150 mg tablet,12 hr sustained-r elease(smok ing deterrent) Take 1 tablet 3 times a day by oral route. 06/17 completed Not Available Not Available Not Available Vitals Date Recorded Body height Body mass index (BMI) Body weight Body temperature Heart rate Oxygen saturation Oxygen saturation in Arterial blood by Pulse oximetry Systolic blood pressure Diastolic blood pressure Provider Name and Address Organization Details Last Updated DateTime 1 175.26 cm 28.5 kg/m2 84796.3 3 g 97.4 [degF] 75 /min 97 % 97 % 120 mm[Hg] 64 mm[Hg] Carlin Yusuf III [facility] 1 09:04:25 Date Recorded Body height Body mass index (BMI) Body weight Body temperature Heart rate Oxygen saturation Oxygen saturation in Arterial blood by Pulse oximetry Systolic blood pressure Diastolic blood pressure Provider Name and Address Organization Details Last Updated DateTime 1 175.26 cm 29.7 kg/m2 53518.0 7 g 97.4 [degF] 63 /min 98 % 98 % 134 mm[Hg] 80 mm[Hg] Criselda Ibrahim [facility] 10:37:46 Social History Question Answer Notes LastModified by [employer] Details LastModified Time Tobacco Smoking Status Never Smoker Not Available [employer] 03/26/2020 03:36:54 Do You Have An Advance Directive? Yes [id number] Information not available 03/26/2020 Are You Blind Or Do You Have Difficulty Seeing? No [id number] Information not available 03/26/2020 What Is Your Level Of Caffeine Consumption? Occasional [id number] Information not available 03/26/2020 Are You Deaf Or Do You Have Serious Difficulty Hearing? No [id number] Information not available 03/26/2020 What Type Of Diet Are You Following? REGULAR [id number] Information not available 03/26/2020 Which Illicit Or Recreational Drugs Have You Used? No [email or web address] Information not available 08/20/2020 Marital Status [email or web address] Informatio n not available 03/18/2017 What Was The Date Of Your Most Recent Tobacco Screening? 03/31/2017 [email or web address] Information not available 08/20/2020 How Many Children Do You Have? 2 [id number] Information not available 03/26/2020 Are You Sexually Active? Yes [id number] Information not available 03/26/2020 How Much Tobacco Do You Smoke? No [email or web address] Information not available 04/05/2020 General Stress Level Medium [email or web address] Information not available 06/17/2016 Sex: Unknown Functional Status Question Answer Note LastModified by [employer] Details LastModified Time What is your level of alcohol consumption? Occasional [id number] Information not available 03/26/2020 What is your exercise level? Occasional [id number] Information not available 03/26/2020 Mental Status Question Answer Note LastModified by Organization D etails LastModified Time Do you have difficulty concentrating, remembering or making decisions? No [id number] Information no t available 03/26/2020 Family History Relationship Description Onset Age of this Age Resolved Age Notes LastModified by Organization Details LastModified Time Mother Hypercholest tal cline Not available 2016 12:31:43 Mother Alzheimer's disease [email or web address] Not available 04/09 15:43:29 Notes:squamous and subaceous cancer Medical History Condition Response Coronary Artery Disease N Other Y Gout N Blood Diseases N Kidney Stones N Blood Transfusion N Breast Cancer N Depression N COPD N Lung Disease N Developmental or Behavioral Disorders N Breast Problem N Difficulty Swallowing N Anxiety Disorder Y Muscle, Joint, or Bone Problems N Vision or Eye Problems N Arthritis N Polyps N Infertility N Mental Disorder N Cancer N Varicosities N Stroke N Endometriosis N Bladder or Kidney Problems N High Cholesterol Y Liver Disease N Fibromyalgia N Headaches N Kidney Disease N Allergies/Hayfever N Heart Problems N Ear or Hearing Problems Y Hospitalizations N Thyroid Problems N GI Problems N ADD/ADHD N Skin Problems N Eating Disorder N Anemia N MRSA exposure N Constipation N Diabetes N Seizures/Epilepsy N Tuberculosis N AIDS/HIV N Congestive Heart Failure (CHF) N Eczema N Diverticulitis N Abuse/Domestic Violence N Asthma N Reflux/GERD N Hepatitis N Pulmonary Embolism N Hypertension N Chronic Ear Infections N Osteoporosis N Thrombophilias N Immunizations Vaccine Type Date Status Note Provider Nam e and Address Organization Details Recorded Time COVID-19, mRNA, LNP-S, PF, 30 mcg/0.3 mL dose 06/10/19 22 completed Mahogany Macario [facility] 06/16/2021 12:29:22 Influenza, adjuvanted, trivalent, PF 04/03/20 17 completed Conrad Degroot [facility] 07/11/2019 13:32:11 Influenza, adjuvanted, trivalent, PF 03/02/20 18 completed Conrad Degroot [facility] 07/11/2019 13:32:11 Influenza, high-dose, trivalent, PF 03/15/20 19 completed Conrad Degroot [facility] 07/11/2019 13:32:40 zoster, unspecified formulation 02/19/20 12 completed Not Available [facility] 04/25/2020 07:05:32 Pneumococcal conjugate PCV 13 11/01/19 14 completed Not Available [facility] 04/25/2020 07:05:32 tetanus toxoid, unspecified formulation 06/30/19 00 completed Not Available [facility] 04/25/2020 07:05:32 Tdap 04/26/20 20 completed De Zamudio DO [address] [facility], [place], [address], [facility] 07/11/2020 19:41:40 pneumococcal polysaccharide PPV23 04/26/20 20 completed De Zamudio, [address], [place], [address], [facility] 07/11/2020 19:41:40 Past Encounters Encounter ID Performer Location Encounter Start Date Encounter Closed Date Diagnosis/Indication Diagnosis SNOMED-CT Code Diagnosis ICD10 Code Diagnosis Note [id number] Chano Olsen PA-C Main Office [address] [address] 06/17/2016 11:56:51 06/17/2016 13:01:47 Spasm of back muscles 463999954 M62.830 Continue with medication s you are currently on. Mixed hyperlipidemia 267 864656 E78.2 Discontinu e gemfibrozi l and continue with zetia. Will recheck levels in 3 months. [id number] Chano Olsen PA-C Main Office [address] [place] [address] 03/18/2017 13:51:58 03/18/2017 15:04:38 Sciatica 43045241 M54.31 [id number] Chano Olsen PA-C Main Office [address] [place] [address] 03/31/2017 14:51:39 03/31/2017 16:08:35 Tendinitis of wrist 432759881 M77.8 [id number] Chano Olsen PA-C Main Office [address] [place] [address] 04/24/2019 12:56:19 04/24/2019 13:43:38 Spasm of back muscles 245663750 M62.830 New, requiring medication and advised patient to use diclofenac gel (4 grams). Patient agreeable. Body mass index 25-29 - overweight 125998810 Z68.29 [id number] Chano Olsen PA-C Main Office [address] [address] 07/11/2019 13:11:45 07/11/2019 15:06:13 Cough 04578796 R05 New, requiring flu test and medication today. Pt agreeable. If sx worsen advised patient to return to clinic. Body mass index 25-29 - overweight 823632631 Z68.29 Exposure t o Influenzavirus 395746191 Z20.828 New, patient recently in contact with daughter who was diagnosed with flu, flu test negative in clinic but 15% fail rate for point of care tests. Discussed with patient about starting tamiflu at this time. Patient to be prescribed tamiflu at this time. [id number] Chano Olsen PA-C Main Office [address] [facility] [address] [place] [address] 03/23/2020 09:43:21 03/23/2020 10:59:58 Anxiety 57540117 F41.9 Establishe d, requiring a refill of his medication . Instructed to take medication as prescribed on label. Instructed to seek immediate medical attention with thoughts of self harm and/or SI. Verbally agreeable. Vitamin D deficiency 347 44184 E55.9 Establishe d, requiring screening lab work. Will RTC in 2 weeks to discuss lab work. Verbally agreeable. Hypercholesterolemia 136 87123 E78.00 Establishe d, screening lab work sent as listed below. Will RTC in 2 weeks to discuss lab work. Endocrine/ metabolic screening 787179938 R53.83 Z13.228 Z13.29 E78.00 F41.9 Screening lab work sent as listed below. Screening for malignant neoplasm of prostate 419295689 Z12.5 Screening lab work sent as listed below. Body mass index 30+ - obesity 720176674 Z68.30 [id number] AMADA TRUJLILO NP Main Office [address] [facility] [address] [address] [place] [address] 04/05/2020 14:54:12 04/05/2020 15:52:58 Adult health examination 191071718 Z00.00 Screening for malignant neoplasm of colon 095556319 Z12.11 Screening for cardiovascular system disease 016347465 Z13.6 Screening for malignant neoplasm of prostate 160776539 Z12.5 The pt is UTD on screening. PSA on 03/23/2020 . Active or passive immunization 695687969 Z23 Pt will check his records for last Tdap and to see if he already had Shingrix. Will call back to update informatio n. Body mass index 30+ - obesity 677862308 Z68.30 [id number] AMADA TRUJILLO NP Main Office [address] [place] [address] 04/26/2020 10:27:57 04/26/2020 10:49:22 Hepatitis C screening 231505229 Z11.59 [id number] Chano Olsen PA-C Main Office [address] [place] [address] 08/05/2020 08:34:46 08/05/2020 10:13:47 Hypercholesterolemia 76060221 E78.00 Establishlenin heredia,stable. Abdominal pain 34188614 R10.9 New,requir ing CT order. Pt advised to use OTC glycerin suppositor ies as indicated after the cat scan. Pt to f/u after imaging results are sent to clinic. Patient understand s and agrees w/ the plan. All questions addressed. Body mass index 25-29 - overweight 275830260 Z68.29 [id number] Chano Olsen PA-C Main Office [address] [place] [address] 08/06/2020 12:31:28 08/06/2020 13:18:38 Constipation 68552568 K59.00 Establishe d,Advised patient to pecan picker OTC laxative. Instructed them to find maintenanc e dosage, where they are passing 1-2 bowel movements per day. Discussed symptoms that warrant immediate medical attention. Recommende d Miralax use over the next 24 hours and resume normal diet if symptoms improve. Advised patient to reduce fiber capsule intake.Pat ient agreeable to the plan set forth by provider. All questions addressed. Body mass index 25-29 - overweight 866229057 Z68.28 Insomnia 173701483 G47.0 0 New,Requir ing temazepam 15mg at this time.Advis ed patient on tiring effects of medication .Warned against use when he needs to drive, or operate other day-to-day activities .If not improved, RTC.Patien t agreeable to the plan set forth by provider. All questions addressed. Hypercholesterolemia 136 57600 E78.00 Establishe d, stable. Diverticul osis of colon 707616913 K57.[address] scan.Monit or for improvemen t with laxative. [id number] Chano Olsen PA-C Main Office [address] [place] [address] 08/20/2020 08:56:05 08/20/2020 09:53:25 Hypercholesterolemia 94814557 E78.00 Establishe d, stable. Insomnia 371686987 G47.0 0 Establishe d,unstable . Pt advised to start temazepam and all pt concerns about side effects were discussed. Advised patient on tiring effects of medication . Warned against use when he needs to drive, or operate other day-to-day activities . If not improved, RTC. Patient agreeable to the plan set forth by provider. All questions addressed. Body mass index 25-29 - overweight 897330861 Z68.28 [id number] Chano Olsen PA-C Main Office [address] [facility] [address] [place] [address] 10/08/2020 08:54:51 10/08/2020 09:10:16 Endocrine/metabolic screening 256066223 Z13.228 Z13.29 [id number] De Zamudio DO Main Office [address] [facility] [address] [place] [address] 03/31/2021 10:19:40 03/31/2021 11:35:53 Hyperlipidemia 65909702 E78.5 Establishe d, stable.Req uiring medication refill.Adv ised pt to take medication as prescribed .Suggest low fat/low cholestero l diet, increase fresh vegetables and heart healthy fats, such as, olive oil, safflower oil Start or continue an exercise program with the goal of getting to 150 minutes of exercise a week.Patie nt understand s and agrees w/ the plan. All questions addressed. Body mass index 25-29 - overweight 785237688 Z68.28 [id number] De Zamudio DO Main Office [address] [facility] [address] [place] [address] 04/04/2021 14:57:39 04/04/2021 15:16:34 Active or passive immunization 765588736 Z23 [id number] De Zamudio DO Main Office [address] [place] [address] 04/16/2021 08:44:38 04/16/2021 09:26:47 Hypercholesterolemia 42575855 E78.00 See order group for labs for billing purposes only. Health Concerns Section Related Observation LastModified by Organization Detai ls LastModified Time None Recorded Concern Status LastModified by Organization Details LastModified Time None Recorded Advance Directives Directive Y: Payers Insurance Date Sequence Insurance Name Policy Number Policy Ching Covered Member ID Ching Member ID Guarantor Name 04/29/2021 2 [employer] (MEDICARE SUPPLEMENT) Ollie Patiño [id number] Ollie Patiño 06/11/2021 1 [place] [id number] Ollie Patiño [id number] Ollie Patiño Notes Date Note Type Note Provider Name a nd Address Organization Details Recorded Time 08/20/2020 text/html 70 yo male presents to the clinic for a 2 week f/u on constipation. Pt states the constipation has resolved. Pt reports bowels are normal and he goes once a day. Pt reports he has not started the temazepam for insomnia due to reading possible side-effects of medication.Pt reports he is sleeping better. Pt reports he has been improving in the last 5 days from his back surgery.Pt reports he will be following up with specialist. They otherwise report living well with no acute issues at this time. No SANCHEZ, no n/v/d, no chest pain, no SOB, no fevers, no other symptoms reported. De Zamudio DO [address], [place], [address], [facility] 09/28/2020 18:24:28 10/08/2020 text/html Patient presents for labwork. Specimen was collected and processed by a medical imaging specialist and lab team. No physical assessment or provider encounter performed. De Zamudio DO [address], [place], [address], [facility] 11/02/2020 21:23:00 03/31/2021 text/html 70 yo male presents to the clinic for medication management. Pt reports he feel's stable on medication. They otherwise report living well with no acute issues at this time. No SANCHEZ, no n/v/d, no chest pain, no SOB, no fevers, no other symptoms reported.No other concerns reported at this time. DO Eros Mcrae [address], [place], [address], [facility] 05/21/2021 10:00:12 04/04/2021 text/html Patient presents to the clinic for an immunization update. Immunization was administered by a medical imaging specialist. No provider encounter or assessment. There are no current concerns at this time. DO Roger Mcrae[address], [place], [address], [facility] 07/09/2021 10:33:01 04/16/2021 text/html Patient presents for labwork. Specimen was collected and processed by a medical imaging specialist and lab team. No physical assessment or provider encounter performed. DO [address], [place], [address], [facility] 07/09/2021 10:27:44
--- OUTSIDE RECORDS SUMMARY | 2024-11-10 00:50 | XMS_ITS | Clinical Summary ---
Author Organization [facility] Address [address] [place] [address] Care Team Providers Care Career Resource Specialist Name Role Phone Angeles House MD Primary Care Provider [phone] Allergies Active Allergy Reactions Criticality Noted Date Comments Tamsulosin Headache 07/17/2021 Medications buPROPion (WELLBUTRIN SR) 150 mg Sustained-Relea se tablet Take 150 mg by mouth 2 times daily. 09/07/2021 Active ezetimibe (ZETIA) 10 mg tablet Daily 07/17/2021 Active rosuvastatin (CRESTOR) 5 mg tablet Daily 07/17/2021 Active polyethylene glycol (MIRALAX; GLYCOLAX) 17 g powder for solution Daily Active alfuzosin (UROXATRAL) 10 mg Sustained-Relea se tabletIndicatio ns:Weak urine stream Take 1 Tablet (10 mg) by mouth once daily with a meal. 90 Tablet 3 09/25/2021 Active loratadine (CLARITIN) 10 mg tablet Take 1 Tablet (10 mg) by mouth once daily. 0 12/03/2021 Active cholecalciferol (Vitamin D-3) 2,000 unit capsule Take 1 Capsule (2,000 units) by mouth once daily. 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 Gender Identity Not on file Sexual Orientation Not on file Obstetrics History Last Filed Vital Signs Vital Sign Reading Time Taken Comments Blood Pressure 124/78 12/03/2021 11:37 AM CDT Pulse 64 12/03/2021 11:37 AM CDT Temperature - - Respiratory Rate - - Oxygen Saturation 97% 12/03/2021 11:37 AM CDT Inhaled Oxygen Concentration - - Weight 81.6 kg (180 lb) 04/06/2024 10:20 AM LAUNCH MANAGER Height 175.3 cm (5' 9) 04/06/2024 10:20 AM LAUNCH MANAGER Body Mass Index 26.58 04/06/2024 10:20 AM LAUNCH MANAGER Plan of Treatment Upcoming Encounters Date Type Department Care Team (Late st Contact Info) Description 04/12/2025 10:40 AM LAUNCH MANAGER Office Visit [facility] [address] [place] [address] Solo Gotti MD [address] [place] [address] Health Maintenance Due Date Last Done Comments Tdap 1959 Depression screening for age 12+ 1960 Hepatitis C screening for ag e 18-79 1966 Tetanus booster 1968 Pneumococcal series for age 50+ (1 of 1 - PCV) 1998 Zoster (shingles) series for age 50+ (1 of 2) 1998 Medicare Wellness for age 65+ 2013 RSV vaccine for adults or (1 - 1-dose 75+ series) 2023 COVID-19 vaccine series ( season) 2024 05/11/2023, 03/17/2022 Influenza Vaccine (Season Ended) 2025 BMI (ht and wt on same day) for age 18+ 04/06/2025 04/06/2024, 04/02/2023 Hepatitis B series for 19+ Aged Out N o longer eligible based on patient's age to complete this topic Insurance [employer] MEDICARE ADVANTAGE MR Care Teams Career Resource Specialist Relationship Specialty Start Date End Date Angeles House MD [address] [place] [id number] PCP - General Internal Medicine 09/24/21
--- OUTSIDE RECORDS SUMMARY | 2024-11-10 00:50 | XMS_ITS | Data Portability ---
Author Organization [facility] Address [address] [place] [address] Care Team Providers Care Manager Testing Name Role Phone IRENE DWYER Referring Provider WILLY SUAREZ Primary Care Provider Assessment Encounter Date Assessment Date Assessment LastModified by Organization Details LastModified Time 06/02/2022 06/02/2022 71 year old male with lower urinary tract symptoms. Not available 06/02/2022 08:59:42 10/28/2022 10/28/2022 72 year old male with lower urinary tract symptoms. Not available 10/28/2022 12:51:44 Plan of Treatment Reminders Order Date Submit Date Provider Last Modified By Organization Details Last Modified Time Details Appointments None recorded. Lab urinalysis, dipstick 2023 024 [facility], [address], [place] [address], [address], 12:46:56 urinalysis, microscopic 2023 024 [facility], [address], [address], [place], [address], 4 12:46:58 Referral pelvic floor therapy referral - Please contact patient to schedule 2022 023 MARK Wang Scheduling, [address] [place], [address], 3 08:50:18 Procedures None recorded. Surgeries None recorded. Imaging None recorded. Medication Orders solifenacin 10 mg tablet 2023 024 [id number], [address], [place], [place], [id number], 4 16:26:54 oxybutynin chloride ER 15 mg tablet,exte nded release 24 hr 2022 023 [facility] #[id number], [address], [place], [place], [phone], 14:57:57 Patient TargetsNo targets recorded. Patient Instructions Encounter Date Encounter Id Patient Instructions Last Modified By Organization Details Last Modified Time 06/02/2022 [id number] Lower Urinary Tr act Symptoms: We discussed his Urocuff results in detail and reviewed his voiding curve. I suspect his main issues are more related to overactive bladder. We discussed that this is likely why he has derived little benefit from alpha-ramon therapy. I recommend he undergo pelvic floor physical therapy with biofeedback. He will return after. If he hasn't had sufficient improvement we can consider adding an anticholinergic/bet a-3 agonist. [email or web address] Not available 06/02/2022 09:00:56 10/28/2022 [id number] Lower Urinary Tr act Symptoms: He has had only mild benefit from physical therapy. We discussed starting anticholinergic therapy. We discussed side effects, risks, and benefits. He would like to try. Start oxybutynin ER 15 mg daily. [email or web address] Not available 10/28/2022 12:58:18 11/01/2023 [id number] This is a 73 yea r old male who is here for the ongoing management of lower urinary tract symptoms. 1. LUTS/OAB: Previously saw Dr. Guerra on 10/28/2022 for the same. Was started on oxybutynin. Feels this has helped with urgency. Continues to have frequency. Nocturia 3-4 x. - Urine testing today to rule out infection. We discussed lifestyle modifications to improve bladder health: 1. Avoiding bladder irritants such as spicy food, caffeine, and alcohol 2. Drinking enough water to stay hydrated, but to not drink in excess of this 3. Manage any existing constipation. 4. Fluid restriction 2-3 hours before bed Discussed option of starting alternate anticholinergic and he would like to try new medication. Will send Rx for vesicare 10 mg daily. Stop oxybutynin. Side effects discussed. PVR 123 cc today. Can further consider other treatments including sacral nerve modulation, botox if pt continues to have OAB symptoms. Advised that based on prior urocuff testing, there was no obstruction noted with his voiding. 2. chronic constipation starting in 2020. Has been on miralax for management. No recent issues but continue management. Follow up in 6 months for recheck, sooner with problems. [email or web address] Not available 11/01/2023 12:38:12 05/11/2024 [id number] This is a 73 yea r old male who is here for the ongoing management of lower urinary tract symptoms. 1. LUTS/OAB: Follows with Dr. Guerra Slightly improved urgency. Continues to have significant frequency. Nocturia 3-4 x. IPSS 24 No persistent improvement with oxybutynin, solifenacin, gemtesa, mirabegron. Did not tolerate tamsulosin and uroxatral of no benefit. Minimal improvement with pelvic floor PT. On prior urocuff testing, there was no high grade obstruction noted with his voiding. At this point, he is not likely to benefit from additional medication management. We discussed lifestyle modifications to improve bladder health: 1. Avoiding bladder irritants such as spicy food, caffeine, and alcohol 2. Drinking enough water to stay hydrated, but to not drink in excess of this 3. Manage any existing constipation. 4. Fluid restriction 2-3 hours before bed - Recommend PVR on RN schedule as he complains of feelings of incomplete bladder emptying. - Will further discuss with Dr. Guerra regarding next steps and alternative treatments. [email or web address] Not available 05/24/2024 00:35:12 Reason for Referral Pelvic Floor Therapy Referra l for Lower urinary tract symptoms Please contact patient to schedule Referring Physician: Dylan Guerra, Urology, Encounter Date: 06/02/2022 Results Created Date Observation Date Name Description Value Unit Range Abnormal Flag Note LastModifiedBy Organization Detail LastModifiedTime 03/31/20 22 03/31/2022 UA DIP CS ADVAN TUS color -advantus YELLOW yellow Not Available [facility] [address], [place], [address], 03/31/2022 17:33:15 03/31/20 22 03/31/2022 UA DIP CS ADVAN TUS appearance -advantus CLEAR clear Not Available [facility] [address] [place] [address] [address], [place], [address], 03/31/2022 17:33:15 03/31/20 22 03/31/2022 UA DIP CS ADVAN TUS glucose -advantus NEGATI VE mg/dL negati ve Not Available [facility] [address] [place] [address] [address], [place], [address], 03/31/2022 17:33:15 03/31/20 22 03/31/2022 UA DIP CS ADVAN TUS bilirubin -advantus NEGATI VE negati ve Not Available [facility] [address] [place] [address], [place], [address], 03/31/2022 17:33:15 03/31/20 22 03/31/2022 UA DIP CS ADVAN TUS ketones -advantus NEGATI VE mg/dL negati ve Not Available [facility] [address] [place] [address], [place], [address], 03/31/2022 17:33:15 03/31/20 22 03/31/2022 UA DIP CS ADVAN TUS sp. gravity -advantus 1.020 1.010- 1.025 Not Available [facility] [address] [place] [address], [place], [address], 03/31/2022 17:33:15 03/31/20 22 03/31/2022 UA DIP CS ADVAN TUS pH -advantus 6.0 5.0-8. 0 Not Available [facility] [address] [place] [address], [place], [address], 03/31/2022 17:33:15 03/31/20 22 03/31/2022 UA DIP CS ADVAN TUS protein -advantus NEGATI VE mg/dL negati ve Not Available [facility] [address] [place] [address], [place], [address], 03/31/2022 17:33:15 03/31/20 22 03/31/2022 UA DIP CS ADVAN TUS urobilinogen -advantus 0.[address] [facility] [address], [place], [address], 03/31/2022 17:33:15 03/31/20 22 03/31/2022 UA DIP CS ADVAN TUS nitrites -advantus NEGATI VE negati ve Not Available [facility] [address] [place] [address], [place], [address], 03/31/2022 17:33:15 03/31/20 22 03/31/2022 UA DIP CS ADVAN TUS blood -advantus TRACE negati ve abnormal Not Available [facility] [address] [place] [address], [place], [address], 03/31/2022 17:33:15 03/31/20 22 03/31/2022 UA DIP CS ADVAN TUS leukocytes -advantus NEGATI VE negati ve Not Available [facility] [address] [place] [address] [address], [place], [address], 03/31/2022 17:33:15 03/31/20 22 03/31/2022 UA DIP CS ADVAN TUS performed by LIANA Woods Not Available [facility] [address] [place] [address], [place], [address], 03/31/2022 17:33:15 03/31/20 22 03/31/2022 UA DIP CS ADVAN TUS total urine volume (mL) 40 /mL ----- ----- ----- ----- ----- ----- ----- ----- ----- ----- ----- ----- ----- ----- ---- *Thiago araiza note the follo wing minim um quant ities for addit ional urine testi ng: - Atypi cals: 3 mL - Cytol ogy: 20 mL - GC/CH : 2 mL - FISH: 30 mL - Atypi cals w/ GC/CH : 5 mL - Cytol ogy PLUS FISH: 50 mL - Urine Cultu re: 3 mL ----- ----- ----- ----- ----- ----- ----- ----- ----- ----- ----- ----- ----- ----- ---- This lab resul t is being provi ded to you and your provi ruth at the same time in compl iance with the Centu ry Cures Act. Your provi ruth may not have had time to revie w and make recom menda tions based on the resul t. Mita vasques allow up to one week for provi ruth revie w. Not Available [facility] [address], [place], [address], 03/31/2022 17:33:15 03/31/20 22 03/31/2022 UA MICRO SCOPI C U-WBC 0 - 2 [hpf] 0 - 2 Not Available [facility] [address] [facility] [address], [place], [address], 03/31/2022 17:33:18 03/31/20 22 03/31/2022 UA MICRO SCOPI C U-RBC 0 - 2 [hpf] 0 - 2 Not Available [facility] [address], [place], [address], 03/31/2022 17:33:18 03/31/20 22 03/31/2022 UA MICRO SCOPI C bacteria Small [hpf] negati ve abnormal Not Available [facility] [address], [place], [address], 03/31/2022 17:33:18 03/31/20 22 03/31/2022 UA MICRO SCOPI C squamous epi Negati ve /lpf negati ve,sma ll This lab resul t is being provi ded to you and your provi ruth at the same time in compl iance with the Centu ry Cures Act. Your provi urth may not have had time to revie w and make recom menda tions based on the resul t. Mita e allow up to one week for provi ruth revie w. Not Available [facility] [address], [place], [address], 03/31/2022 17:33:18 06/02/19 23 06/02/2022 UA DIP CS STATU S+ color -advantus YELLOW yellow Not Available [facility] [address], [place], [address], 06/02/2022 18:07:25 06/02/19 23 06/02/2022 UA DIP CS STATU S+ appearance -advantus CLEAR clear Not Available [facility] [address], [place], [address], 06/02/2022 18:07:25 06/02/19 23 06/02/2022 UA DIP CS STATU S+ glucose -advantus NEGATI VE mg/dL negati ve Not Available [facility] [address], [place], [address], 06/02/2022 18:07:25 06/02/19 23 06/02/2022 UA DIP CS STATU S+ bilirubin -advantus NEGATI VE negati ve Not Available [facility] [address], [place], [address], 06/02/2022 18:07:25 06/02/19 23 06/02/2022 UA DIP CS STATU S+ ketones -advantus NEGATI VE mg/dL negati ve Not Available [facility] [address], [place], [address], 06/02/2022 18:07:25 06/02/19 23 06/02/2022 UA DIP CS STATU S+ sp. gravity -advantus 1.010 1.010- 1.025 Not Available [facility] [address] [place] [address], [place], [address], 06/02/2022 18:07:25 06/02/19 23 06/02/2022 UA DIP CS STATU S+ pH -advantus 6.5 5.0-8. 0 Not Available [facility] [address] [place] [address], [place], [address], 06/02/2022 18:07:25 06/02/19 23 06/02/2022 UA DIP CS STATU S+ protein -advantus NEGATI VE mg/dL negati ve Not Available [facility] [address] [place] [address], [place], [address], 06/02/2022 18:07:25 06/02/19 23 06/02/2022 UA DIP CS STATU S+ urobilinogen -advantus 0.2 E.U./D L 0.2 E.U./d L Not Available [facility] [address] [place] [address], [place], [address], 06/02/2022 18:07:25 06/02/19 23 06/02/2022 UA DIP CS STATU S+ nitrites -advantus NEGATI VE negati ve Not Available [facility] [address] [place] [address], [place], [address], 06/02/2022 18:07:25 06/02/19 23 06/02/2022 UA DIP CS STATU S+ blood -advantus NEGATI VE negati ve Not Available [facility] [address] [facility] [address], [place], [address], 06/02/2022 18:07:25 06/02/19 23 06/02/2022 UA DIP CS STATU S+ leukocytes -advantus NEGATI VE negati ve Not Available [facility] [address] [facility] [address], [place], [address], 06/02/2022 18:07:25 06/02/19 23 06/02/2022 UA DIP CS STATU S+ performed by LIANA Woods Not Available [facility] [address] [facility] [address], [place], [address], 06/02/2022 18:07:25 06/02/19 23 06/02/2022 UA DIP CS STATU S+ total urine volume (mL) 80 /mL ----- ----- ----- ----- ----- ----- ----- ----- ----- ----- ----- ----- ----- ----- ---- *Thiago araiza note the follo wing minim um quant ities for addit ional urine testi ng: - Atypi cals: 3 mL - Cytol ogy: 20 mL - GC/CH : 2 mL - FISH: 30 mL - Atypi cals w/ GC/CH : 5 mL - Cytol ogy PLUS FISH: 50 mL - Urine Cultu re: 3 mL ----- ----- ----- ----- ----- ----- ----- ----- ----- ----- ----- ----- ----- ----- ---- This lab resul t is being provi ded to you and your provi ruth at the same time in compl iance with the Centu ry Cures Act. Your provi ruth may not have had time to revie w and make recom menda tions based on the resul ofelia vasques allow up to one week for provi ruth sayra w. Not Available [facility] [address] [place] [address], [place], [address], 06/02/2022 18:07:25 11/01/19 24 11/01/2023 UA WITHO UT MICRO - CS URISC AN blood - uriscan SMALL negati ve abnormal Not Available [facility] [address] [place] [address], [place], [address], 11/01/2023 12:46:56 11/01/19 24 11/01/2023 UA WITHO UT MICRO - CS URISC AN bilirubin - uriscan NEGATI VE mg/dL negati ve Not Available [facility] [address] [place] [address], [place], [address], 11/01/2023 12:46:56 11/01/19 24 11/01/2023 UA WITHO UT MICRO - CS URISC AN urobilinogen - uriscan NORMAL mg/dL normal Not Available [facility] [address] [place] [address], [place], [address], 11/01/2023 12:46:56 11/01/19 24 11/01/2023 UA WITHO UT MICRO - CS URISC AN ketones - uriscan NEGATI VE mg/dL negati ve Not Available [facility] [address] [place] [address], [place], [address], 11/01/2023 12:46:56 11/01/19 24 11/01/2023 UA WITHO UT MICRO - CS URISC AN protein - uriscan NEGATI VE mg/dL negati ve Not Available [facility] [address] [place] [address], [place], [address], 11/01/2023 12:46:56 11/01/19 24 11/01/2023 UA WITHO UT MICRO - CS URISC AN nitrites - uriscan NEGATI VE negati ve Not Available [facility] [address] [place] [address], [place], [address], 11/01/2023 12:46:56 11/01/19 24 11/01/2023 UA WITHO UT MICRO - CS URISC AN glucose - uriscan NEGATI VE mg/dL negati ve Not Available [facility] [address] [place] [address], [place], [address], 11/01/2023 12:46:56 11/01/19 24 11/01/2023 UA WITHO UT MICRO - CS URISC AN pH - uriscan 6.00 5.00-9 .00 Not Available [facility] [address] [place] [address] [address], [place], [address], 11/01/2023 12:46:56 11/01/19 24 11/01/2023 UA WITHO UT MICRO - CS URISC AN sp. gravity - uriscan 1.02 1.01-1 .03 Not Available [facility] [address] [place] [address] [address], [place], [address], 11/01/2023 12:46:56 11/01/19 24 11/01/2023 UA WITHO UT MICRO - CS URISC AN leukocytes - uriscan NEGATI VE negati ve Not Available [facility] [address] [place] [address] [address], [place], [address], 11/01/2023 12:46:56 11/01/19 24 11/01/2023 UA WITHO UT MICRO - CS URISC AN color - uriscan YELLOW lt. yellow ;yello w Not Available [facility] [address] [place] [address], [place], [address], 11/01/2023 12:46:56 11/01/19 24 11/01/2023 UA WITHO UT MICRO - CS URISC AN clarity - uriscan CLEAR clear Not Available [facility] [address] [place] [address] [address], [place], [address], 11/01/2023 12:46:56 11/01/19 24 11/01/2023 UA WITHO UT MICRO - CS URISC AN total urine volume (mL) 70 /mL ----- ----- ----- ----- ----- ----- ----- ----- ----- ----- ----- ----- ----- ----- ---- *Thiago araiza note the follo wing minim um quant ities for addit ional urine testi ng: - Atypi cals: 3 mL - Cytol ogy: 20 mL - GC/CH : 2 mL - FISH: 30 mL - Atypi cals w/ GC/CH : 5 mL - Cytol ogy PLUS FISH: 50 mL - Urine Cultu re: 3 mL ----- ----- ----- ----- ----- ----- ----- ----- ----- ----- ----- ----- ----- ----- ---- This lab resul t is being provi ded to you and your provi ruth at the same time in compl iance with the Centu ry Cures Act. Your provi ruth may not have had time to revie w and make recom menda tions based on the resul t. Mita vasques allow up to one week for provi ruth revie w. Not Available [facility] [address] [facility] [address], [place], [address], 11/01/2023 12:46:56 11/01/19 24 11/01/2023 UA MICRO SCOPI C U-WBC 0 - 2 [hpf] 0 - 2 Not Available [facility] [address] [facility] [address], [place], [address], 11/01/2023 12:46:58 11/01/19 24 11/01/2023 UA MICRO SCOPI C U-RBC 0 - 2 [hpf] 0 - 2 Not Available [facility] [address] [facility] [address], [place], [address], 11/01/2023 12:46:58 11/01/19 24 11/01/2023 UA MICRO SCOPI C bacteria RARE [hpf] none;r are Not Available [facility] [address] [facility] [address], [place], [address], 11/01/2023 12:46:58 11/01/19 24 11/01/2023 UA MICRO SCOPI C squamous epi NEGATI VE /lpf negati ve,sma ll This lab resul t is being provi ded to you and your provi ruth at the same time in compl iance with the Centu ry Cures Act. Your provi ruth may not have had time to revie w and make recom menda tions based on the resul t. Pleas e allow up to one week for provi ruth revie w. Not Available [facility] [address] [facility] [address], [place], [address], 11/01/2023 12:46:58 Result Notes None recorded. Problems Name Problem SNOMED Code Status Onset Date Resolution Date Notes Provider Name and Address Organization Details Recorded Time Depressive disorder 65323005 Active [address] [facility] 4 11:58:17 Overactive urinary bladder 622539544 Active [address] [facility] 4 11:58:33 Hypercholester olemia 37775429 Active [address] [facility] 4 11:58:42 History of statin therapy 384868356 Active [address] [facility] 4 11:58:50 Problem Notes Documentation Provider Name and Address Organization Details Recorded Time Correspondence : [facility] [address] [place] [id number], Tom M (Legal name: Ollie Bajwa) (id #[id number], : 1950) Documents sent via fax will include the following message: This fax may contain sensitive and confidential personal health information that is being sent for the sole use of the intended recipient. Unintended recipients are directed to securely destroy any materials received. You are hereby notified that the unauthorized disclosure or other unlawful use of this fax or any personal health information is prohibited. To the extent patient information contained in this fax is subject to 42 CFR Part 2, this regulation prohibits unauthorized disclosure of these records. If you received this fax in error, please visit [email or web address] to notify the sender and confirm that the information will be destroyed. If you do not have internet access, please call to notify the sender and confirm that the information will be destroyed. Thank you for your attention and cooperation. [ID:[id number]][facility] [address] [place] [id number] , Date: 4RE: Ollie Bajwa, : 1950, PT ID #[id number] Dwyer MD, I would like to thank you for referring Ollie Bajwa to our practice on 05/11/2024. I have enclosed a copy of the office evaluation for your records. Once again, thank you for allowing me to participate in the care of this patient. Sincerely, Electronically Signed by: RASHIDA CHAN PA-C, PAS[facility] Encounter Reason/Date Telephone Visit Followup: Overactive urinary bladder 05/11/2024 - 01:20PM - [facility] History of Present [age]hod3 year old male scheduled for ongoing management of lower urinary tract symptoms. Previously saw Dr. Guerra on 10/28/2022 for the same. No persistent improvement with oxybutynin, solifenacin, gemtesa, mirabegron.Most bothersome sx is the urinary frequency. Urgency seems to be less overall.Nocturia 3-4 x.Drinks lot of tea, water near bedtime but has worked to decrease this.Feels unable to fully empty bladder. IPSS 24. Reports 50 year history of small bladder and frequent voiding. hx of chronic constipation starting in 2020. Has been on miralax for management. Overall improved. Denies fever, chills, nausea, vomiting.No dysuria, hematuria. Prior history:He has been dealing with lower urinary tract symptoms for more than 30 years.He is bothered by urinary urgency and frequency.His force of stream is strong.There is no history of retention.There is no history of urinary tract infections.He denies gross hematuria.He has tried tamsulosin 0.4 mg daily in the past but this resulted in headaches.He is tried alfuzosin 10 mg daily but also this did not improve his symptoms.He underwent a Urocuff study on 04/24/2022 which revealed a peak flow rate of 20 mL/sec and a normal voiding curve suggesting lack of high grade obstruction.He has completed physical therapy, but had fairly mild benefit. Prior to conducting our video visit, the patient was apprised of the risks, benefits and alternatives to video visits including but not limited to poor video quality, interrupted visits due to technological limitations, delays in medical evaluation and treatment due to deficiencies or failures of equipment, failure of security protocols resulting in a breach of privacy of personal medical information and a lack of access to complete medical records resulting in not fully informed decisions. It was not possible for the patient to sign the privacy regulations, HIPAA release and assignment of benefits forms. The patient was given the opportunity to ask questions about these policies and gave verbal acknowledgement and approval of these policies as well as to hold this meeting by video. Lastly, the patient agreed to allowing their medication history to be pulled from a national pharmacy database to facilitate and coordinate their care.Review of SystemsCardiovascular:Cardi ovascular: no palpitations or chest pain. Respiratory:Respiratory: no cough or shortness of breath. Gastrointestinal:Gastrointe stinal: no nausea, vomiting, constipation, or abdominal pain andGERD;no frequent diarrhea,. Genitourinary:Genitourinary : no incontinence or difficulty urinating;no testicular: pain, no testicular: lump, no penile: lesion, no dysuria, no change in urinary stream, no hematuria.Physical ExamPt appears in NAD and answers questions appropriately.Unable to further examine due to video visit format.Procedure DocumentationNone recordedAssessment/Plan1. Overactive urinary zejspkmW89.81: Overactive bladder 2. Increased frequency of iymcyjzscW67.0: Frequency of micturition Discussion NotesThieva is a 73 year old male who is here for the ongoing management of lower urinary tract symptoms. 1. LUTS/OAB: Follows with Dr. Leelightly improved urgency. Continues to have significant frequency.Nocturia 3-4 x.IPSS 24 No persistent improvement with oxybutynin, solifenacin, gemtesa, mirabegron. Did not tolerate tamsulosin and uroxatral of no benefit.Minimal improvement with pelvic floor PT.On prior urocuff testing, there was no high grade obstruction noted with his voiding. At this point, he is not likely to benefit from additional medication management. We discussed lifestyle modifications to improve bladder health:1. Avoiding bladder irritants such as spicy food, caffeine, and alcohol2. Drinking enough water to stay hydrated, but to not drink in excess of this3. Manage any existing constipation.4. Fluid restriction 2-3 hours before bed - Recommend PVR on RN schedule as he complains of feelings of incomplete bladder emptying.- Will further discuss with Dr. Guerra regarding next steps and alternative treatments. Return to Office Patient will return to the office as needed Liz carroll [facility] 06/01/2024 08:59:05 Procedures Surgical History Date Name Laterality Status Provider Name and Address Organization Details Recorded Time 11/01/19 24 Bladder Scan completed Catina Baumann [facility] 11/01/2023 12:32:38 04/24/20 22 [address] [facility] 04/24/2022 16:22:52 04/24/20 22 Bladder Scan completed Mary Joya [facility] 04/24/2022 16:22:24 03/31/20 22 Bladder Scan completed Jahaira Glover [facility] 03/31/2022 14:35:46 07/03/19 22 Diagnostic colonoscopy completed Not Available Health Note 05/31/2022 11:01:07 Removal of sperm duct(s) completed Not Available Health Note 05/31/2022 11:01:07 Imaging Results None recorded. Procedure Notes None recorded. Medical Equipment None Reported. Allergies Allergen ID Allergen Name Allergen Category Reaction Reaction Severity Criticality Documentation Date Start Date Code Code System Note Provider Name and Address Organization Details Recorded Time 355130 Flomax medicatio n headache Not available Not available 10/26/2022 71105 3 RxNorm Not Available Health Note 13:26:32 Medications Name Sig Start Date Stop Date Status Note LastModified by Organization Details LastModified Time bupropion HCl SR 150 mg tablet,12 hr sustained -release TAKE 1 TABLET BY MOUTH TWICE DAILY active Not Available Not Available No t Available oxybutyni n chloride ER 15 mg tablet,ex tended release 24 hr TAKE 1 TABLET BY MOUTH EVERY DAY 05/11 completed HN: Patient reports no longer taking Not Available Not Available Not Available triamcino lone acetonide 0.1 % topical cream APPLY TO FOREARMS WHEN ITCHY TWICE DAILY UP TO TWO WEEKS MAX STOP FOR 1 WEEK THEN REPEAT NEEDED active Not Available Not Available No t Available temazepam 15 mg capsule TABLET EVERY NIGHT AT BEDTIME 06/02 completed HN: Patient reports no longer taking HN: Patient reports no longer taking Not Available Not Available Not Available cephalexi n 500 mg capsule TAKE 1 CAPSULE BY MOUTH FOUR TIMES DAILY 06/02 completed HN: Patient reports no longer taking HN: Patient reports no longer taking Not Available Not Available Not Available omeprazol e 20 mg capsule,d elayed release 20mg 2/day active Not Available Not Available No t Available methylpre dnisolone 4 mg tablets in a dose pack 10/31 completed HN: Patient reports no longer taking Not Available Not Available Not Available loratadin e 10 mg tablet 10 MG LORATADI NE 1/day active Not Available Not Available No t Available diazepam 5 mg tablet 10/31 completed HN: Patient reports no longer taking Not Available Not Available Not Available ezetimibe 10 mg tablet TAKE 1 TABLET BY MOUTH EVERY DAY active HN: Patient reports no longer taking Not Available Not Available Not Available rosuvasta tin 5 mg tablet TAKE 1 TABLET BY MOUTH EVERY DAY active Not Available Not Available No t Available alfuzosin ER 10 mg tablet,ex tended release 24 hr 06/02 completed 2023-01- 08 HN: Patient reports no longer taking Not Available Not Available Not Available solifenac in 10 mg tablet TAKE 1 TABLET BY MOUTH EVERY DAY FOR OVERACTI VE BLADDER 12/13 completed Not Available Not Available Not Available diclofena c sodium 1% 2/day active Not Available Not Available No t Available Vitamin D3 2000iu 1/day active Not Available Not Available No t Available clobetaso l propionat e (bulk) .05% 1/day active Not Available Not Available No t Available diclofena c 1 % topical gel APPLY 2 GRAMS TOPICALL Y TO THE AFFECTED AREA FOUR TIMES DAILY NEEDED FOR NECK PAIN active HN: Patient reports no longer taking Not Available Not Available Not Available Myrbetriq 50 mg tablet,ex tended release TAKE 1 TABLET BY MOUTH EVERY DAY 10/31 completed HN: Patient reports no longer taking Not Available Not Available Not Available Vitals Date Recorded Body mass index (BMI) Body height Body weight Provider Name and Address Organization Details Last Updated DateTime 06/02/2022 25.8 kg/m2 175.26 cm 75611.7591 12686 g Not Available Health Note 06/02/2022 08:30:46 Date Recorded Body weight Body mass index (BMI) Body height Provider Name and Address Organization Details Last Updated DateTime 10/28/2022 70925.68636 1237 g 26.6 kg/m2 172.72 cm Not Available Health Note 10/28/2022 12:43:55 Date Recorded Body weight Provider Name an d Address Organization Details Last Updated DateTime 11/01/[address] [facility] 11/01/2023 11:57:38 Date Recorded Body mass index (BMI) Body height Provider Name and Address Organization Details Last Updated DateTime 11/01/2023 27.1 kg/m2 172.72 cm Not Available Health Note 11:41:06 Date Recorded Body height Provider Name an d Address Organization Details Last Updated DateTime 04/24/[address] [facility] 04/24/2022 16:18:15 Date Recorded Body height Provider Name an d Address Organization Details Last Updated DateTime 05/11/2024 [address] [facility] 05/11/2024 14:15:36 Social History Question Answer Notes LastModified by Organizat ion Details LastModified Time Tobacco Smoking Status Never Smoker Not Available Health Note 10/28/2023 21:33:38 What Is Your Level Of Caffeine Consumption? Moderate [email or web address] Information not available 10/28/2023 How Much Tobacco Do You Chew? None [email or web address] Information not available 10/28/2023 Have You Or Anyone In Your House Tested Positive For COVID-19 In The Past 14 Days? No [email or web address] Information not available 03/29/2022 Have You Or Anyone In Your House Been Exposed To COVID-19 In The Past 14 Days? No [email or web address] Information not available 03/29/2022 Have You Or Anyone In Your Home Experienced Symptoms Of COVID 19 Such As Fever >100.4, Shortness Of Breath, Difficulty Breathing, Or A Cough? No [email or web address] Information not available 03/29/2022 Have You Traveled Outside Of [place] In The Past 30 Days? Yes [email or web address] Information not available 05/31/2022 Race Unknown Information not available 11/01/2023 Preferred Language Bhutanese Information not available 11/01/2023 What Was The Date Of Your Most Recent Tobacco Screening? 05/11/2024 Information not available 05/11/2024 Have You Ever Been Counseled For Unhealthy Alcohol Use? No Information not available 01/12/2023 What Is Your Relationship Status? [email or web address] Information not available 10/28/2023 Are You Sexually Active? No [email or web address] Information not available 10/28/2023 Has Tobacco Cessation Counseling Been Provided? Yes Information not available 06/02/2022 On What Date Was Tobacco Cessation Counseling Provided? 05/11/2024 Information not available 05/11/2024 How Many Days In The Past Year Have You Consumed 5 Or More Drinks? 02 [email or web address] Information no t available 10/28/2023 Sex: Unknown Functional Status Question Answer Note LastModified by Organizat ion Details LastModified Time How many times per week do you consume alcohol? Less than 1 time per week Information not available 01/12/2023 Do you use any illicit or recreational drugs? No [email or web address] Information not available 10/28/2023 Do you or have you ever used any other forms of tobacco or nicotine? No Information not available 06/02/2022 What is your level of alcohol consumption? None Information not available 11/01/2023 Do you or have you ever used smokeless tobacco? Never used smokeless tobacco [email or web address] Information not available 10/28/2023 Do you or have you ever used e-cigarettes or vape? Never used electronic cigarettes [email or web address] Information not available 10/28/2023 Mental Status None recorded. Family History Nothing Reported. Medical History Condition Response Diabetes N Sexually Transmitted Infection N Other N Bleeding Disorder N High Blood Pressure Y Kidney Stones N Cancer N Lung Disease N Depression N High Cholesterol Y GERD/Acid Reflux N Heart Disease N Immunizations Vaccine Type Date Status Note Provider Nam e and Address Organization Details Recorded Time influenza, unspecified formulation 3 completed Malaika carroll [facility] 11/01/2023 11:57:43 zoster live 2 completed Not Available Health Note 10/28/2023 21:33:42 SARS-COV-2 (COVID-19) vaccine, UNSPECIFIED 3 completed Malaika carroll [facility] 11/01/2023 11:57:43 pneumococcal, unspecified formulation 3 completed Not Available Health Note 10/28/2023 21:33:42 SARS-COV-2 (COVID-19) vaccine, UNSPECIFIED 2 completed Nick carroll [facility] 01/18/2023 08:47:28 influenza, unspecified formulation 2 completed Nick carroll [facility] 01/18/2023 08:47:28 Pneumococcal conjugate PCV 13 1 completed Nick carroll [facility] 01/18/2023 08:47:28 pneumococcal polysaccharide PPV23 1 completed Nick carroll [facility] 01/18/2023 08:47:28 pneumococcal polysaccharide PPV23 1 completed Nick carroll [facility] 01/18/2023 08:47:28 influenza, unspecified formulation 2 completed Nick Meath null, [facility] 01/18/2023 08:47:28 Pneumococcal conjugate PCV 13 2 completed Nick Meath null, [facility] 01/18/2023 08:47:28 SARS-COV-2 (COVID-19) vaccine, UNSPECIFIED 2 completed Nick Meath null, [facility] 01/18/2023 08:47:28 SARS-COV-2 (COVID-19) vaccine, UNSPECIFIED 2 completed Nick Meath null, [facility] 01/18/2023 08:47:28 pneumococcal, unspecified formulation 0 completed Nick Meath null, [facility] 01/18/2023 08:47:28 influenza, unspecified formulation 2 completed Nick Meath null, [facility] 01/18/2023 08:47:28 Influenza, high-dose, quadrivalent, PF 1 completed Nick Meath null, [facility] 01/12/2023 11:30:11 Influenza, high-dose, quadrivalent, PF 2 completed Nick Meath null, [facility] 01/12/2023 11:30:11 COVID-19, mRNA, LNP-S, PF, 30 mcg/0.3 mL dose 1 completed Nick Meath null, [facility] 01/12/2023 11:30:11 COVID-19, mRNA, LNP-S, PF, 30 mcg/0.3 mL dose 1 completed Nick Meath null, [facility] 01/12/2023 11:30:12 COVID-19, mRNA, LNP-S, bivalent, PF, 30 mcg/0.3 mL dose 2 completed Nick Meath null, [facility] 01/12/2023 11:30:12 pneumococcal polysaccharide PPV23 0 completed Nick Meath null, [facility] 01/12/2023 11:30:12 Novel [id number], all formulations 9 completed Nick Meath null, [facility] 01/12/2023 11:30:12 Pneumococcal conjugate PCV 13 4 completed Nick Meath null, [facility] 01/12/2023 11:30:12 Hep B, unspecified formulation 3 completed Nick Meath null, [facility] 01/12/2023 11:30:12 Hep B, unspecified formulation 3 completed Nick Meath null, [facility] 01/12/2023 11:30:12 Hep B, unspecified formulation 2 completed Nick Meath null, [facility] 01/12/2023 11:30:12 zoster live 2 completed Nick Meath null, [facility] 01/12/2023 11:30:12 Influenza, split virus, trivalent, preservative 2 completed Nick Meath null, [facility] 01/12/2023 11:30:12 Influenza, split virus, trivalent, preservative 0 completed Nick Meath null, [facility] 01/12/2023 11:30:12 Influenza, split virus, trivalent, preservative 1 completed Nick Meath null, [facility] 01/12/2023 11:30:12 Influenza, split virus, trivalent, preservative 3 completed Nick Meath null, [facility] 01/12/2023 11:30:12 Influenza, split virus, trivalent, preservative 8 completed Nick Meath null, [facility] 01/12/2023 11:30:12 Influenza, split virus, trivalent, PF 9 completed Nick Meath null, [facility] 01/12/2023 11:30:12 Td (adult), 5 Lf tetanus toxoid, preservative free, adsorbed 0 completed Nick Meath null, [facility] 01/12/2023 11:30:12 Td (adult), 5 Lf tetanus toxoid, preservative free, adsorbed 0 completed Nick Meath null, [facility] 01/12/2023 11:30:12 Td (adult), 2 Lf tetanus toxoid, preservative free, adsorbed 0 completed Nick Meath null, [facility] 01/12/2023 11:30:12 Td (adult), 2 Lf tetanus toxoid, preservative free, adsorbed 2 completed Nick Meath null, [facility] 01/12/2023 11:30:12 Influenza, split virus, quadrivalent, PF 4 completed Nick Meath null, [facility] 01/12/2023 11:30:12 Past Encounters Encounter ID Performer Location Encounter Start Date Encounter Closed Date Diagnosis/Indication Diagnosis SNOMED-CT Code Diagnosis ICD10 Code Diagnosis Note [id number] Dylan Guerra MD [facility] [address] [place] [address] 03/31/2022 09:01:41 03/31/2022 15:23:10 Lower urinary tract symptoms due to benign prostatic hypertrophy [id number] 9101 N40.1 [id number] MD Susie [facility]go[facility] [address] [address] 04/24/2022 15:34:12 05/06/2022 09:03:39 Lower urinary tract symptoms due to benign prostatic hypertrophy [id number] 9101 N40.1 [id number] Dylan Guerra MD [employer] [address] [address] 06/02/2022 08:30:40 06/02/2022 11:03:53 Lower urinary tract symptoms 875073883 R39.9 [id number] MD Jackie NgoDiavibepaula [address] [address] 10/28/2022 12:42:45 10/28/2022 13:33:15 Lower urinary tract symptoms 410355574 R39.9 [id number] SUE CHIANGDiavibepaula [address] [place] [address] 11/01/2023 11:37:15 11/01/2023 12:38:49 Lower urinary tract symptoms 350187797 R39.9 OAB symptoms. [id number] RASHIDA CHAN PA-C [facility] [address] [place] [address],[address] [place] [address] 05/11/2024 14:14:36 05/25/2024 07:26:33 Overactive urinary bladder 528958455 N32.81 Increased frequency of urination 333208694 R35.0 Health Concerns Section Related Observation LastModified by Organization Detai ls LastModified Time None Recorded Concern Status LastModified by Organization Details LastModified Time None Recorded Advance Directives Directive None Recorded Payers Insurance Date Sequence Insurance Name Policy Number Policy Ching Covered Member ID Hcing Member ID Guarantor Name 05/25/2024 1 [place] [id number] Ollie Bajwa [id number] 01 [id number] Ollie Bajwa 11/01/2023 1 [place] [employer] Ollie Bajwa [id number] Ollie Bajwa 11/01/2023 2 [employer] (MEDICARE SUPPLEMENT) Ollie Bajwa [id number] Ollie Bajwa Notes Date Note Type Note Provider Name and Address Organization Details Recorded Time 06/02/2022 text/html This is a 71 yea r old male who is here for the ongoing management of lower urinary tract symptoms. He has been dealing with lower urinary tract symptoms for more than 30 years.He is bothered by urinary urgency and frequency.His force of stream is strong.There is no history of retention.There is no history of urinary tract infections.He denies gross hematuria.He has tried tamsulosin 0.4 mg daily in the past but this resulted in headaches.He is tried alfuzosin 10 mg daily but also this did not improve his symptoms.He underwent a Urocuff study on 04/24/2022 which revealed a peak flow rate of 20 mL/sec and a normal voiding curve suggesting lack of high grade obstruction. Dylan Guerra MD [address] [facility],[address], [place], [address], [facility] 06/02/2022 10:54:10 10/28/2022 text/html This is a 72 yea r old male who is here for the ongoing management of lower urinary tract symptoms. He has been dealing with lower urinary tract symptoms for more than 30 years.He is bothered by urinary urgency and frequency.His force of stream is strong.There is no history of retention.There is no history of urinary tract infections.He denies gross hematuria.He has tried tamsulosin 0.4 mg daily in the past but this resulted in headaches.He is tried alfuzosin 10 mg daily but also this did not improve his symptoms.He underwent a Urocuff study on 04/24/2022 which revealed a peak flow rate of 20 mL/sec and a normal voiding curve suggesting lack of high grade obstruction.He has completed physical therapy, but had fairly mild benefit. Dylan Guerra MD [address] [place] [address],[address], [address], [facility] 10/28/2022 14:30:25 11/01/2023 text/html This is a 73 yea r old male who is here for the ongoing management of lower urinary tract symptoms. Previously saw Dr. Guerra on 10/28/2022 for the same. Was started on oxybutynin. Feels this has helped with urgency. Continues to have frequency.Nocturia 3-4 x.Drinks lot of tea, water near bedtime.Feels able to empty bladder. IPSS 19 . Reports 50 year history of small bladder and frequent voiding. hx of chronic constipation starting in 2020. Has been on miralax for management. Denies fever, chills, nausea, vomiting.No dysuria, hematuria. Wondering about aquablation and if this could help him. Prior history:He has been dealing with lower urinary tract symptoms for more than 30 years.He is bothered by urinary urgency and frequency.His force of stream is strong.There is no history of retention.There is no history of urinary tract infections.He denies gross hematuria.He has tried tamsulosin 0.4 mg daily in the past but this resulted in headaches.He is tried alfuzosin 10 mg daily but also this did not improve his symptoms.He underwent a Urocuff study on 04/24/2022 which revealed a peak flow rate of 20 mL/sec and a normal voiding curve suggesting lack of high grade obstruction.He has completed physical therapy, but had fairly mild benefit. RASHIDA CHAN PA-C [address], [place], [address], [facility] 11/01/2023 12:38:25 05/11/2024 text/html 73 year old male scheduled for ongoing management of lower urinary tract symptoms. Previously saw Dr. Guerra on 10/28/2022 for the same. No persistent improvement with oxybutynin, solifenacin, gemtesa, mirabegron.Most bothersome sx is the urinary frequency. Urgency seems to be less overall.Nocturia 3-4 x.Drinks lot of tea, water near bedtime but has worked to decrease this.Feels unable to fully empty bladder. IPSS 24. Reports 50 year history of small bladder and frequent voiding. hx of chronic constipation starting in 2020. Has been on miralax for management. Overall improved. Denies fever, chills, nausea, vomiting.No dysuria, hematuria. Prior history:He has been dealing with lower urinary tract symptoms for more than 30 years.He is bothered by urinary urgency and frequency.His force of stream is strong.There is no history of retention.There is no history of urinary tract infections.He denies gross hematuria.He has tried tamsulosin 0.4 mg daily in the past but this resulted in headaches.He is tried alfuzosin 10 mg daily but also this did not improve his symptoms.He underwent a Urocuff study on 04/24/2022 which revealed a peak flow rate of 20 mL/sec and a normal voiding curve suggesting lack of high grade obstruction.He has completed physical therapy, but had fairly mild benefit. Prior to conducting our video visit, the patient was apprised of the risks, benefits and alternatives to video visits including but not limited to poor video quality, interrupted visits due to technological limitations, delays in medical evaluation and treatment due to deficiencies or failures of equipment, failure of security protocols resulting in a breach of privacy of personal medical information and a lack of access to complete medical records resulting in not fully informed decisions. It was not possible for the patient to sign the privacy regulations, HIPAA release and assignment of benefits forms. The patient was given the opportunity to ask questions about these policies and gave verbal acknowledgement and approval of these policies as well as to hold this meeting by video. Lastly, the patient agreed to allowing their medication history to be pulled from a national pharmacy database to facilitate and coordinate their care. RASHIDA CHAN PA-C [address] [place] [address],[place] [address], [place], [address], [facility] 05/24/2024 00:35:25
--- OUTSIDE RECORDS SUMMARY | 2024-11-10 00:50 | XMS_ITS | Encounter Summary ---
Author Organization [facility] Address [address] [place] [address] Care Team Providers Care Collision Repair Technician Name Role Phone Kyle Benitez MD Primary Care Provider [phone] France Baptiste MD Primary Care Provider + [phone] Kyle Benitez MD Primary Care Provider [phone] Angeles House MD Primary Care Provider Patito Herron DPM, Podiatry /Foot and Ankle Surgery Unavailable Reason for Referral * Diagnostic Procedure Outpatient - Closed Specialty Diagnoses / Procedures Referred By Nadia becker Referred To Contact Diagnoses Screening for malignant neoplasm of the rectum Kyle Benitez MD XXX RESIGNED XXX [address] [facility] [address] [place] [address] Phone: tel: fax: [facility] [address] [place] [address] Phone: tel: fax: Referral ID Status Reason Start Date Expiration Date Visits Re quested Visits Authorized [id number] Closed 08/02/2014 01/29/2015 1 1 Comments Coverage of these services is subject to the terms and limitations of your health insurance plan. Please call member services at your health plan with any benefit or coverage questions. Any procedures must be performed at a [facility] facility OR coordinated by your clinic's referral office. PROCEDURE ONLY - COLONOSCOPY Reason for procedure: screening FMG: [facility] GI Real Estate Underwriter: All patients will be contacted by GI Real Estate Underwriter to schedule appt. Clinic order is routed to GI Real Estate Underwriter Automatically. Appt. Line [phone]. (This includes [facility], [facility] Sur[facility], & Dr. Desai). If specific provider or group is requested, place in comment field. Reason for Visit * Reason Onset Date Comments Orders 06/06/2014 Encounter Details Date Type Department Care Team (Late st Contact Info) Description 06/06/2014 MyC Medical Advice [place] [address] [place] [address] Kyle Benitez MD XXX RESIGNED XXX [address] [place] [address] Orders Social History Tobacco Use Types Packs/Day Years Used Date Smoking Tobacco: Never Smokeless Tobacco: Never Alcohol Use Standard Drinks/Week Comments Yes 0 (1 standard drink = 0.6 oz pur e alcohol) occasional Sex and Gender Information Value Date Recorded Sex Assigned at Not on file 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 Last done 07/30/04. Order pended and sent to MD to review. 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 documented in this encounter Plan of Treatment Scheduled Referrals Name Type Priority Associated Diagnoses Orde r Schedule GASTROENTEROLOGY ADULT REFERRAL +/- PROCEDURE Referral Routine Screening For Malignant Neoplasm Of The Rectum Ordered: 08/02/2014 documented as of this encounter Visit Diagnoses Diagnosis Screening for malignant neoplasm of the rectum- Primary documented in this encounter Care Teams Collision Repair Technician Relationship Specialty Start Date End Date Kyle Benitez MD XXX RESIGNED XXX [address] [place] [phone] PCP - General 07/08/01 10/04/14 France Baptiste MD XXX RESIGNED XXX [address] [place] [phone] PCP - General Internal Medicine 10/05/14 10/16/14 Kyle Benitez MD XXX RESIGNED XXX [address] [place] [phone] PCP - General Internal Medicine 10/17/14 07/01/17 Angeles House MD [facility] [address] [address] PCP - General Internal Medicine 03/20/23 Patito Herron, DPM, Podiatry/Foot and Ankle Surgery [address] [place] [address] Assigned Musculoskeletal Provider 01/14/24 documented as of this encounter
--- OUTSIDE RECORDS SUMMARY | 2024-11-10 00:50 | XMS_ITS | Clinical Summary ---
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 90 tablet 1 01/13/20 11 Active ezetimibe (ZETIA) 10 MG tabletIndications: Mixed hyperlipidemia Take 1 tablet (10 mg) by mouth daily at bedtime 90 tablet 4 11/13/19 15 Active methylPREDNISolone (MEDROL DOSEPAK) 4 MG tablet therapy packIndications:Ce rvical paraspinal muscle spasm Follow Package Directions 21 tablet 03/25/20 23 Active Additional Information Patient not taking.Reported on 12/29/2023 solifenacin (VESICARE) 10 MG tablet TAKE 1 TABLET BY MOUTH EVERY DAY FOR OVERACTIVE BLADDER 11/01/19 24 Active rosuvastatin (CRESTOR) 5 MG tablet Take 5 mg by mouth daily Active Active Problems Problem Noted Date Diagnosed Date History of colonic polyps 12/12/2014 Overview (12/12/2014): 09/05/14 FINAL DIAGNOSIS: Cecal polyp polypectomy. -Multiple fragments of Tubular adenoma. Negative for high grade dysplasia and malignancy. Next Colonoscopy due 09/06/19 HYPERLIPIDEMIA LDL GOAL <130 03/23/2010 Nephrolithiasis 03/12/2009 Anxiety state 04/07/2007 Overview (02/22/2015): Problem list name updated by automated process. Provider to review Resolved Problems Problem Noted Date Diagnosed Date Resolved Date Advanced directives, counseling/discussion 01/08/2011 11/08/2023 Overview (01/08/2011): Patient states has Advance Directive and will bring in a copy to clinic. Lateral epicondylitis 03/27/20092009 Overview (02/22/2015): Problem list name updated by automated process. Provider to review Pain in joint, upper arm 03/27/2009 Contracture of upper arm joint 03/27/2009 07/10/2009 Other postprocedural status(V45.89) 03/27/2009 07/10/2009 Lateral epicondylitis 02/23/20082007 Knee pain 02/23/2008 04/24/2008 Mixed hyperlipidemia 03/21/2003 011 Immunizations Immunization Administration Dates Next Due Influenza (H1N1) 05/20/2009 Influenza (IIV3) PF 03/07/2013, 2,03/05/2011,2009,05/20/2009,05/03/2008 Influenza Vaccine >6 months,quad, PF 03/01/2014 Pneumo Conj 13-V (2010&after) 10/31/2013 TD,PF 7+ (Teniva) 11/18/2009,06/30/1999 Zoster vaccine, live 02/19/2012 Family History Medical History Relation Comments Family History Negative Brother 1 Respiratory Brother 2 asthma Depression Daughter 1 Family History Negative Daughter 1 Substance Abuse Daughter 2 Thyroid Disease Daughter 2 Thyroid Disease Daughter 3 Obesity Daughter 4 Cancer Father 48 yo N OT cancer - brain tumor Osteoporosis Maternal Grandmother Other Cancer Maternal Grandmother Cancer Mother Derm Gastrointestinal Disease Mother born 19 24 Colitis nad IBS Osteoporosis Mother Other Cancer Mother Colon Cancer Other Family History Negative Sister Relation Status Comments Brother 1 Brother 2 Daughter 1 Daughter 2 Daughter 3 Daughter 4 Father Maternal Grandmother Mother Other Sister Social History Tobacco Use Types Packs/Day Years Used Date Smoking Tobacco: Never Smokeless Tobacco: Never Tobacco Cessation:Counseling Given: Not Answered Alcohol Use Standard Drinks/Week Comments Yes 0 (1 standard drink = 0.6 oz pur e alcohol) infrequent, social Adolescent Education Answer Date Record ed Getting School Help Needed Not on file 02/28 Sex and Gender Information Value Date Recorded Sex Assigned at Not on file 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 Gender Identity Not on file Sexual Orientation Not on file Last Filed Vital Signs Vital Sign Reading Time Taken Comments Blood Pressure 124/80 12/29/2023 12:49 PM CDT Pulse 74 03/25/2023 8:50 AM CDT Temperature 36.6 C (97.8 F) 03/20/2023 1:43 PM CDT Respiratory Rate 16 03/20/2023 1:34 PM CDT Oxygen Saturation 100% 03/25/2023 8:50 AM CDT Inhaled Oxygen Concentration - - Weight 81.6 kg (180 lb) 12/29/2023 12:49 PM CDT Height 172.7 cm (5' 8) 12/29/2023 12:49 PM CDT Body Mass Index 27.37 12/29/2023 12:49 PM CDT Plan of Treatment Health Maintenance Due Date Last Done Comments ANNUAL REVIEW OF HM ORDERS 1950 HEPATITIS C SCREENING 1966 ZOSTER VACCINE (2 of 3) 04/15/2012 02/19/2012 FALL RISK ASSESSMENT 11/13/2015 11/12/2014, 11/01/19 14 LIPID 11/13/2015 11/12/2014, 10/22, 01/18/2013, Additional history exists MEDICARE ANNUAL WELLNESS VISIT 11/13/2015 11/12/2014, 10/31/2013, 01/18/2013, Additional history exists ADVANCE CARE PLANNING 01/09/2016 01/08/2011 DTAP/TDAP/TD VACCINE (1 - Tdap) 04/27/2020 04/26/2020, 11/18/2009, 04/21/2002, Additional history exists RSV VACCINE (1 - 1-dose 75+ series) 2023 COVID-19 VACCINE ( - season) 2024 05/11/2023, 03/17/2022, 09/08/2020, Additional history exists PHQ-2 (once per calendar year) 2024 INFLUENZA VACCINE (Season Ended) 2025 04/08/2023, 04/08/2023, 03/17/2022, Additional history exists DIABETES SCREENING 03/20/2026 03/20/2023, 0 11/12/2014, 10/10/2014, Additional history exists COLONOSCOPY Discontinued 07/02/2021, 0409/2014, 07/30/2004 COLORECTAL CANCER SCREENING Discontinued PNEUMOCOCCAL VACCINE 50+ YEARS Completed 04/08/2023, 03/17/2022, 05/24/2020, Additional history exists CT COLONOGRAPHY Discontinued FIT Discontinued FLEX SIG Discontinued HPV VACCINE Aged Out No longer eligi ble based on patient's age to complete this topic MENINGITIS VACCINE Aged Out No longer eligible based on patient's age to complete this topic sDNA (Cologuard) Discontinued Procedures Procedure Name Priority Date/Time Associated Diagnosis Comments BASIC METABOLIC PANEL STAT 03/20/2023 3:57 PM CDT LIPID PROFILE Routine 11/12/2014 10:11 AM CDT Routine general medical examination at a [facility] COLONOSCOPY Routine 09/05/2014 7:49 AM CDT from Last 3 Months or Most Recently Relevant to Health Maintenance Results * Basic metabolic panel (03/20/2023 3:57 PM CDT) [facility] Sodium 138 135 - 145 mmol/L 03/20/2023 4:33 PM CDT [facility] Comment:Reference intervals for this test were updated on 02/16/2023 to more accurately reflect our healthy population. There may be differences in the flagging of prior results with similar values performed with this method. Interpretation of those prior results can be made in the context of the updated reference intervals. Potassium 4.1 3.4 - 5.3 mmol/L 03/20/2023 4:33 PM CDT [facility] Chloride 103 98 - 107 mmol/L 03/20/2023 4:33 PM CDT [facility] Carbon Dioxide (CO2) 28 22 - 29 mmol/L 03/20/2023 4:33 PM CDT [facility] Anion Gap 7 7 - 15 mmol/L 03/20/2023 4:33 PM CDT [facility] Urea Nitrogen 14.2 8.0 - 23.0 mg/dL 03/20/2023 4:33 PM CDT [facility] Creatinine 0.83 0.67 - 1.17 mg/dL 03/20/2023 4:33 PM CDT [facility] GFR Estimate >90 >60 mL/min/1. 73m2 03/20/2023 4:33 PM CDT [facility] Calcium 9.1 8.8 - 10.2 mg/dL 03/20/2023 4:33 PM CDT [facility] Glucose 93 70 - 99 mg/dL 03/20/2023 4:33 PM CDT [facility] Blood BLOOD SPECIMEN / Unknown Venipuncture / Unknown 03/20/2023 3:57 PM CDT 03/20/2023 4:06 PM CDT us Yann Garcia MD LAB - BLOOD ORDERABLES Final Res ult LABORATORY [facility] [address] Lab (1st floor, no room number) [place] [address], [facility] [phone] * Lipid Profile (11/12/2014 10:11 AM CDT) Cholesterol 185 <200 mg/dL [facility] Comment: LDL Cholesterol is the primary guide to therapy. The NCEP recommends further evaluation of: patients with cholesterol greater than 200 mg/dL if additional risk factors are present, cholesterol greater than 240 mg/dL, triglycerides greater than 150 mg/dL, or HDL less than 40 mg/dL. Triglycerides 93 0 - 150 mg/dL [facility] HDL Cholesterol 57 >40 mg/dL [facility] LDL Cholesterol Calculated 109 0 - 129 mg/dL [facility] Comment: LDL Cholesterol is the primary guide to therapy: LDL-cholesterol goal in high risk patients is <100 mg/dL and in very high risk patients is <70 mg/dL. VLDL-Cholesterol 19 0 - 30 mg/dL [facility] Cholesterol/HDL Ratio 3.2 0.0 - 5.0 [facility] Blood specimen (specimen) 11/12/2014 10:11 AM CDT 11/12/2014 10:13 AM CDT us Kyle Benitez MD LAB - BLOOD ORDERABLES Final Res ult [facility] [address] [place] [address] * COLONOSCOPY (09/05/2014 7:49 AM CDT) COLONOSCOPY [facility] Patient Name: Ollie Patiño Procedure Date: 09/05/2014 7:49 AM Date of : 1950 Admit Type: Outpatient Age: 64 Gender: Male Attending MD: Gabriele Desai MD Instrument Name: [id number] Procedure: Colonoscopy Indications: Screening for colorectal malignant neoplasm Providers: Gabriele Desai MD, Marie Quick RN (Nurse) Referring MD: Kyle Benitez MD Medicines: Midazolam 2 mg IV, Fentanyl 100 micrograms IV Complications: No immediate complications. Procedure: Pre-Anesthesia Assessment: - Prior to the procedure, a History and Physical was performed, and patient medications and allergies were reviewed. The patient is competent. The risks and benefits of the procedure and the sedation options and risks were discussed with the patient. All questions were answered and informed consent was obtained. Patient identification and proposed procedure were verified by in the procedure room. Mental Status Examination: alert and oriented. Airway Examination: normal oropharyngeal airway and neck mobility. Respiratory Examination: clear to auscultation. CV Examination: normal. Prophylactic Antibiotics: The patient does not require prophylactic antibiotics. Prior Anticoagulants: The patient has taken no previous anticoagulant or antiplatelet agents. ASA Grade Assessment: II - A patient with mild systemic disease. After reviewing the risks and benefits, the patient was deemed in satisfactory condition to undergo the procedure. The anesthesia plan was to use moderate sedation / analgesia (conscious sedation). Immediately prior to administration of medications, the patient was re-assessed for adequacy to receive sedatives. The heart rate, respiratory rate, oxygen saturations, blood pressure, adequacy of pulmonary ventilation, and response to care were monitored throughout the procedure. The physical status of the patient was re-assessed after the procedure. After obtaining informed consent, the colonoscope was passed under direct vision. Throughout the procedure, the patient's blood pressure, pulse, and oxygen saturations were monitored continuously. The [id number] was introduced through the anus and advanced to the cecum, identified by appendiceal orifice and ileocecal valve. The colonoscopy was performed without difficulty. The patient tolerated the procedure well. The quality of the bowel preparation was good. Findings: The perianal and digital rectal examinations were normal. A sessile polyp was found in the cecum. The polyp was 5 mm in size. The polyp was removed with a cold snare. Resection and retrieval were complete. Verification of patient identification for the specimen was done. Estimated blood loss was minimal. Many small and large-mouthed diverticula were found in the sigmoid colon. The exam was otherwise without abnormality on direct and retroflexion views. Impression: - One 5 mm polyp in the cecum. Resected and retrieved. - Diverticulosis in the sigmoid colon. - The examination was otherwise normal on direct and retroflexion views. Recommendation: - Await pathology results. Procedure Code(s): --- Professional --- 47378, Colonoscopy, flexible, proximal to splenic flexure; with removal of tumor(s), polyp(s), or other lesion(s) by snare technique Diagnosis Code(s): --- Professional --- 211.3, Benign neoplasm of colon CPT copyright 2013 [employer]. All rights reserved. The codes documented in this report are preliminary and upon sales property manager review may be revised to meet current compliance requirements. Electronically signed by Gabriele Desai MD __ Gabriele Desai MD 09/05/2014 8:17 AM I was physically present for the entire viewing portion of the exam. Number of Addenda: 0 Note Initiated On: 09/05/2014 7:49 AM Procedure Date: 09/05/2014 7:49:19 AM Scope Withdrawal Time: 0 hours 6 minutes 38 seconds Total Procedure Duration: 0 hours 15 minutes 58 seconds Scope In: 7:55:06 AM Scope Out: 8:11:04 AM RADIOLOGY RESULTS 09/05/2014 7:49 AM CDT Kyle Benitez MD PROCEDURES Final Result RADIOLOGY RESULTS from Last 3 Months or Most Recently Relevant to Health Maintenance [place] [address] [place] [address] MEDICARE ADVANTAGE [facility] MEDICARE ADVANTAGE Care Teams Supervisor Open Hearth Stockyard Relationship Specialty Start Date End Date Angeles House MD [facility] & [address] [address] PCP - General Internal Medicine 03/20/23 Patito Herron DPM, Podiatry/Foot and Ankle Surgery [address] [place] [address] Assigned Musculoskeletal Provider 01/14/24
--- OUTSIDE RECORDS SUMMARY | 2024-11-10 00:50 | XMS_ITS | Encounter Summary ---
Author Organization [facility] Address [address] [place] [address]. 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 Name Role Phone Kyle Benitez MD Primary Care Provider [phone] France Baptiste MD Primary Care Provider [phone] Kyle Benitez MD Primary Care Provider [phone] Angeles House MD Primary Care Provider [phone] Patito Herron DPM, Podiatry /Foot and Ankle Surgery Unavailable Reason for Referral * Diagnostic Procedure Outpatient - Closed Specialty Diagnoses / Procedures Referred By Nadia t Referred To Contact Diagnoses Screening for malignant neoplasm of the rectum Kyle Benitez MD XXX RESIGNED XXX [address] [facility] [address] [place] [address] Phone: tel: fax: [facility] [address] [place] [address] [address] [place] [address] Phone: tel: fax: Referral ID Status Reason Start Date Expiration Date Visits Re quested Visits Authorized [id number] Closed 04/02/2014 09/29/2014 1 1 Comments Coverage of these services is subject to the terms and limitations of your health insurance plan. Please call member services at your health plan with any benefit or coverage questions. Any procedures must be performed at a [facility] facility OR coordinated by your clinic's referral office. PROCEDURE ONLY - COLONOSCOPY Reason for procedure: screening [facility] [phone] STICKER Reason for Visit * Reason Onset Date Comments MyChart Communication 03/30/2014 Referral 03/30/2014 colonoscopy Encounter Details Date Type Department Care Team (Late st Contact Info) Description 03/30/2014 [facility] [address] [place] [address] Kyle Benitez MD XXX RESIGNED XXX [address] [place] [address] MyChart Communication; Referral (colonoscopy) Social History Tobacco Use Types Packs/Day Years Used Date Smoking Tobacco: Never Smokeless Tobacco: Never Alcohol Use Standard Drinks/Week Comments Yes 0 (1 standard drink = 0.6 oz pur e alcohol) occasional Sex and Gender Information Value Date Recorded Sex Assigned at Not on file 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 Please complete pended referral. Last colonoscopy 07/30/04, per recommendations, pt was to have flex sigmoidoscopy in 3 years. Please see [employer] message. Please call pt when referral is complete. Maru Brown RN STICKER documented in this encounter Plan of Treatment Scheduled Referrals Name Type Priority Associated Diagnoses Orde r Schedule GASTROENTEROLOGY ADULT REFERRAL +/- PROCEDURE Referral Routine Screening For Malignant Neoplasm Of The Rectum Ordered: 04/02/2014 documented as of this encounter Visit Diagnoses Diagnosis Screening for malignant neoplasm of the rectum- Primary documented in this encounter Care Teams Bowling Alley Floors Installer Relationship Specialty Start Date End Date Kyle Benitez MD XXX RESIGNED XXX [address] [place] [address] PCP - General 07/08/01 10/04/14 France Baptiste MD XXX RESIGNED XXX [address] [place] [phone] PCP - General Internal Medicine 10/05/14 10/16/14 Kyle Benitez MD XXX RESIGNED XXX [address] [place] [phone] PCP - General Internal Medicine 10/17/14 07/01/17 Angeles House MD [address] [address] PCP - General Internal Medicine 03/20/23 Patito Herron DPM, Podiatry/Foot and Ankle Surgery [address] [place] [address] Assigned Musculoskeletal Provider 01/14/24 documented as of this encounter
--- OUTSIDE RECORDS SUMMARY | 2024-11-10 00:50 | XMS_ITS | Data Portability ---
Author Organization [facility], [facility] Address [address] [place] [address] Care Team Providers Care Resaw Tailer Name Role Phone IRENE DWYER Referring Provider WILLY SUAREZ Primary Care Provider [phone] Assessment Encounter Date Assessment Date Assessment LastModified [...] None recorded. Lab urinalysis, dipstick 2023 024 [facility], [address], [place], [place], [address], 12:46:56 urinalysis, microscopic 2023 024 [facility], [address], [address], [place], [address], 4 12:46:58 Referral pelvic floor therapy referral - Please contact patient to schedule 2022 023 MARK Wang Scheduling, [address] [place], [address], 3 08:50:18 Procedures None recorded. Surgeries None recorded. Imaging None recorded. Medication Orders solifenacin 10 mg tablet 2023 024 [id number], [address], [place], [place], [phone], 4 16:26:54 oxybutynin chloride ER 15 mg tablet,exte nded release 24 hr 2022 023 [id number], [address], [place], [place], [phone], 14:57:57 Patient TargetsNo targets recorded. Patient Instructions Encounter Date Encounter Id Patient Instructions Last Modified By Organization Details Last Modified Time 06/02/2022 [id number] Lower Urinary Tr act Symptoms: We discussed [...] agonist. [email or web address] Not available 06/02/2022 09:00:56 10/28/2022 [id number] Lower Urinary Tr act Symptoms: He has had only mild benefit from physical therapy. We discussed starting anticholinergic therapy. We discussed side effects, risks, and benefits. He would like to try. Start oxybutynin ER 15 mg daily. [email or web address] Not available 10/28/2022 12:58:18 11/01/2023 [id number] This is a 73 yea r old [...] problems. [email or web address] Not available 11/01/2023 12:38:12 05/11/2024 [id number] This is a 73 yea r old [...] TUS color -advantus YELLOW yellow Not Available [facility] [address], [place], [address], 03/31/2022 17:33:15 03/31/20 22 03/31/2022 UA DIP CS ADVAN TUS appearance -advantus CLEAR clear Not Available [facility] [address] [place] [address] [address], [place], [address], 03/31/2022 17:33:15 03/31/20 22 03/31/2022 UA DIP CS ADVAN TUS glucose -advantus NEGATI VE mg/dL negati ve Not Available [facility] [address] [place] [address] [address], [place], [address], 03/31/2022 17:33:15 03/31/20 22 03/31/2022 UA DIP CS ADVAN TUS bilirubin -advantus NEGATI VE negati ve Not Available [facility] [address] [place] [address], [place], [address], 03/31/2022 17:33:15 03/31/20 22 03/31/2022 UA DIP CS ADVAN TUS ketones -advantus NEGATI VE mg/dL negati ve Not Available [facility] [address] [place] [address], [place], [address], 03/31/2022 17:33:15 03/31/20 22 03/31/2022 UA DIP CS ADVAN TUS sp. gravity -advantus 1.020 1.010- 1.025 Not Available [facility] [address] [place] [address] [address], [place], [address], 03/31/2022 17:33:15 03/31/20 22 03/31/2022 UA DIP CS ADVAN TUS pH -advantus 6.0 5.0-8. 0 Not Available [facility] [address] [place] [address] [address], [place], [address], 03/31/2022 17:33:15 03/31/20 22 03/31/2022 UA DIP CS ADVAN TUS protein -advantus NEGATI VE mg/dL negati ve Not Available [facility] [address] [place] [address], [place], [address], 03/31/2022 17:33:15 03/31/20 22 03/31/2022 UA DIP CS ADVAN TUS urobilinogen -advantus 0.2 normal Not Available [facility] [address], [place], [address], 03/31/2022 17:33:15 03/31/20 22 03/31/2022 UA DIP CS ADVAN TUS nitrites -advantus NEGATI VE negati ve Not Available [facility] [address] [place] [address], [place], [address], 03/31/2022 17:33:15 03/31/20 22 03/31/2022 UA DIP CS ADVAN TUS blood -advantus TRACE negati ve abnormal Not Available [facility] [address] [place] [address] [address], [place], [address], 03/31/2022 17:33:15 03/31/20 22 03/31/2022 UA DIP CS ADVAN TUS leukocytes -advantus NEGATI VE negati ve Not Available [place] [facility] [address] [place] [address] [address], [place], [address], 03/31/2022 17:33:15 03/31/20 22 03/31/2022 UA DIP CS ADVAN TUS performed by LIANA Woods Not Available [facility] [address] [place] [address] [address], [place], [address], 03/31/2022 17:33:15 03/31/20 22 03/31/2022 UA DIP [...] for provi ruth revie w. Not Available [place] [facility] [address] [facility] [address], [place], [address], 03/31/2022 17:33:15 03/31/20 22 03/31/2022 UA MICRO SCOPI C U-WBC 0 - 2 [hpf] 0 - 2 Not Available [place] [facility] [address] [facility] [address], [place], [address], 03/31/2022 17:33:18 03/31/20 22 03/31/2022 UA MICRO SCOPI C U-RBC 0 - 2 [hpf] 0 - 2 Not Available [place] [facility] [address], [place], [address], 03/31/2022 17:33:18 03/31/20 22 03/31/2022 UA MICRO SCOPI C bacteria Small [hpf] negati ve abnormal Not Available [place] [facility] [address] [facility] [address], [place], [address], 03/31/2022 17:33:18 03/31/20 22 03/31/2022 UA MICRO [...] for provi ruth revie w. Not Available [place] [facility] [address] [facility] [address], [place], [address], 03/31/2022 17:33:18 06/02/19 23 06/02/2022 UA DIP CS STATU S+ color -advantus YELLOW yellow Not Available [facility] [address], [place], [address], 06/02/2022 18:07:25 06/02/19 23 06/02/2022 UA DIP CS STATU S+ appearance -advantus CLEAR clear Not Available [facility] [address], [place], [address], 06/02/2022 18:07:25 06/02/19 23 06/02/2022 UA DIP CS STATU S+ glucose -advantus NEGATI VE mg/dL negati ve Not Available [place] [facility] [address] [facility] [address], [place], [address], 06/02/2022 18:07:25 06/02/19 23 06/02/2022 UA DIP CS STATU S+ bilirubin -advantus NEGATI VE negati ve Not Available [place] [facility] [address] [facility] [address], [place], [address], 06/02/2022 18:07:25 06/02/19 23 06/02/2022 UA DIP CS STATU S+ ketones -advantus NEGATI VE mg/dL negati ve Not Available [facility] [address] [facility] [address], [place], [address], 06/02/2022 18:07:25 06/02/19 23 06/02/2022 UA DIP CS STATU S+ sp. gravity -advantus 1.010 1.010- 1.025 Not Available [facility] [address] [place] [address], [place], [address], 06/02/2022 18:07:25 06/02/19 23 06/02/2022 UA DIP CS STATU S+ pH -advantus 6.5 5.0-8. 0 Not Available [facility] [address] [place] [address] [address], [place], [address], 06/02/2022 18:07:25 06/02/19 23 06/02/2022 UA DIP CS STATU S+ protein -advantus NEGATI VE mg/dL negati ve Not Available [facility] [address] [place] [address] [address], [place], [address], 06/02/2022 18:07:25 06/02/19 23 06/02/2022 UA DIP CS STATU S+ urobilinogen -advantus 0.2 E.U./D L 0.2 E.U./d L Not Available [facility] [address] [place] [address] [address], [place], [address], 06/02/2022 18:07:25 06/02/19 23 06/02/2022 UA DIP CS STATU S+ nitrites -advantus NEGATI VE negati ve Not Available [facility] [address] [place] [address] [address], [place], [address], 06/02/2022 18:07:25 06/02/19 23 06/02/2022 UA DIP CS STATU S+ blood -advantus NEGATI VE negati ve Not Available [place] [facility] [address] [facility] [address], [place], [address], 06/02/2022 18:07:25 06/02/19 23 06/02/2022 UA DIP CS STATU S+ leukocytes -advantus NEGATI VE negati ve Not Available [facility] [address] [facility] [address], [place], [address], 06/02/2022 18:07:25 06/02/19 23 06/02/2022 UA DIP CS STATU S+ performed by LIANA Woods Not Available [facility] [address], [place], [address], 06/02/2022 18:07:25 06/02/19 23 06/02/2022 UA DIP [...] for provi ruth sayra w. Not Available [place] [facility] [address] [place] [address] [address], [place], [address], 06/02/2022 18:07:25 11/01/19 24 11/01/2023 UA WITHO UT MICRO - CS URISC AN blood - uriscan SMALL negati ve abnormal Not Available [facility] [address] [place] [address] [address], [place], [address], 11/01/2023 12:46:56 11/01/19 24 11/01/2023 UA WITHO UT MICRO - CS URISC AN bilirubin - uriscan NEGATI VE mg/dL negati ve Not Available [facility] [address] [place] [address] [address], [place], [address], 11/01/2023 12:46:56 11/01/19 24 11/01/2023 UA WITHO UT MICRO - CS URISC AN urobilinogen - uriscan NORMAL mg/dL normal Not Available [facility] [address] [place] [address] [address], [place], [address], 11/01/2023 12:46:56 11/01/19 24 11/01/2023 UA WITHO UT MICRO - CS URISC AN ketones - uriscan NEGATI VE mg/dL negati ve Not Available [facility] [address] [place] [address] [address], [place], [address], 11/01/2023 12:46:56 11/01/19 24 11/01/2023 UA WITHO UT MICRO - CS URISC AN protein - uriscan NEGATI VE mg/dL negati ve Not Available [facility] [address] [place] [address] [address], [place], [address], 11/01/2023 12:46:56 11/01/19 24 11/01/2023 UA WITHO UT MICRO - CS URISC AN nitrites - uriscan NEGATI VE negati ve Not Available [facility] [address] [place] [address] [address], [place], [address], 11/01/2023 12:46:56 11/01/19 24 11/01/2023 UA WITHO UT MICRO - CS URISC AN glucose - uriscan NEGATI VE mg/dL negati ve Not Available [facility] [address] [place] [address] [address], [place], [address], 11/01/2023 12:46:56 11/01/19 24 11/01/2023 UA WITHO UT MICRO - CS URISC AN pH - uriscan 6.00 5.00-9 .00 Not Available [facility] [address] [place] [address] [address], [place], [address], 11/01/2023 12:46:56 11/01/19 24 11/01/2023 UA WITHO UT MICRO - CS URISC AN sp. gravity - uriscan 1.02 1.01-1 .03 Not Available [facility] [address] [place] [address] [address], [place], [address], 11/01/2023 12:46:56 11/01/19 24 11/01/2023 UA WITHO UT MICRO - CS URISC AN leukocytes - uriscan NEGATI VE negati ve Not Available [facility] [address] [place] [address] [address], [place], [address], 11/01/2023 12:46:56 11/01/19 24 11/01/2023 UA WITHO UT MICRO - CS URISC AN color - uriscan YELLOW lt. yellow ;yello w Not Available [facility] [address] [place] [address] [address], [place], [address], 11/01/2023 12:46:56 11/01/19 24 11/01/2023 UA WITHO UT MICRO - CS URISC AN clarity - uriscan CLEAR clear Not Available [facility] [address] [place] [address] [address], [place], [address], 11/01/2023 12:46:56 11/01/19 24 11/01/2023 UA WITHO [...] for provi ruth revie w. Not Available [place] [facility] [address] [facility] [address], [place], [address], 11/01/2023 12:46:56 11/01/19 24 11/01/2023 UA MICRO SCOPI C U-WBC 0 - 2 [hpf] 0 - 2 Not Available [place] [facility] [address] [facility] [address], [place], [address], 11/01/2023 12:46:58 11/01/19 24 11/01/2023 UA MICRO SCOPI C U-RBC 0 - 2 [hpf] 0 - 2 Not Available [place] [facility] [address] [facility] [address], [place], [address], 11/01/2023 12:46:58 11/01/19 24 11/01/2023 UA MICRO SCOPI C bacteria RARE [hpf] none;r are Not Available [place] [facility] [address] [facility] [address], [place], [address], 11/01/2023 12:46:58 11/01/19 24 11/01/2023 UA MICRO [...] for provi ruth revie w. Not Available [facility] [address], [place], [address], 11/01/2023 12:46:58 Result Notes None recorded. Problems Name Problem SNOMED Code Status Onset Date Resolution Date Notes Provider Name and Address Organization Details Recorded Time Depressive disorder 17919704 Active [address] [facility] 4 11:58:17 Overactive urinary bladder 340283480 Active [address] [facility] 4 11:58:33 Hypercholester olemia 87965519 Active [address] [facility] 4 11:58:42 History of statin therapy 434694782 Active [address] [facility] 4 11:58:50 Problem Notes Documentation Provider Name and Address Organization Details Recorded Time Correspondence : [facility] [address] [place] [id number], Tom M (Legal name: Ollie Bajwa) (id #[id number], : 1950) Documents sent via fax will [...] received this fax in error, please visit [email or web address] to notify the sender and confirm that the information will be destroyed. If you do not have internet access, please call to notify the sender and confirm that the information will be destroyed. Thank you for your attention and cooperation. [ID:[id number]][facility] [address] [place] [phone] , Date: 4RE: Ollie Bajwa, : 1950, PT ID #[id number] Dwyer MD, I would like to thank [...] Overactive urinary bladder 05/11/2024 - 01:20PM - [facility] History of Present [id number] year old male scheduled for ongoing management [...] video visit format.Procedure DocumentationNone recordedAssessment/Plan1. Overactive urinary apogalhE07.81: Overactive bladder 2. Increased frequency of lxijwtmudW75.0: Frequency of micturition Discussion NotesThieva is a [...] the office as needed Liz carroll [facility] 06/01/2024 08:59:05 Procedures Surgical History Date Name Laterality Status Provider Name and Address Organization Details Recorded Time 11/01/19 24 Bladder Scan completed Catina Baumann [facility] 11/01/2023 12:32:38 04/24/20 [address] Joya [facility] 04/24/2022 16:22:52 04/24/20 22 Bladder Scan completed Mary Joya [facility] 04/24/2022 16:22:24 03/31/20 22 Bladder Scan completed Jahaira Glover [facility] 03/31/2022 14:35:46 07/03/19 22 Diagnostic colonoscopy [...] Name and Address Organization Details Recorded Time 421740 Flomax medicatio n headache Not available Not available 10/26/2022 22364 3 RxNorm Not Available Health Note 13:26:32 [...] Updated DateTime 06/02/2022 25.8 kg/m2 175.26 cm 21832.7591 85217 g Not Available Health Note 06/02/2022 08:30:46 Date Recorded Body weight Body mass index (BMI) Body height Provider Name and Address Organization Details Last Updated DateTime 10/28/2022 06047.52011 1237 g 26.6 kg/m2 172.72 cm Not Available Health Note 10/28/2022 12:43:55 Date Recorded Body weight Provider Name an d Address Organization Details Last Updated DateTime 11/01/[address] [facility] 11/01/2023 11:57:38 Date Recorded Body mass index (BMI) Body height Provider Name and Address Organization Details Last Updated DateTime 11/01/2023 27.1 kg/m2 172.72 cm Not Available Health Note 11:41:06 Date Recorded Body height Provider Name an d Address Organization Details Last Updated DateTime 04/24/[address] [facility] 04/24/2022 16:18:15 Date Recorded Body height Provider Name an d Address Organization Details Last Updated DateTime 05/11/2024 172[address] [facility] 05/11/2024 14:15:36 Social History Question Answer [...] available 03/29/2022 Have You Traveled Outside Of [place] In The Past 30 Days? Yes [email or web address] Information not available 05/31/2022 Race Unknown Information not available 11/01/2023 Preferred Language Citizen Of [place] Information not available 11/01/2023 What Was The [...] influenza, unspecified formulation 3 completed Malaika carroll [facility] 11/01/2023 11:57:43 zoster live 2 completed Not Available Health Note 10/28/2023 21:33:42 SARS-COV-2 (COVID-19) vaccine, UNSPECIFIED 3 completed Malaika carroll [facility] 11/01/2023 11:57:43 pneumococcal, unspecified formulation 3 completed Not Available Health Note 10/28/2023 21:33:42 SARS-COV-2 (COVID-19) vaccine, UNSPECIFIED 2 completed Nick carroll [facility] 01/18/2023 08:47:28 influenza, unspecified formulation 2 completed Nick carroll [facility] 01/18/2023 08:47:28 Pneumococcal conjugate PCV 13 1 completed Nick carroll [facility] 01/18/2023 08:47:28 pneumococcal polysaccharide PPV23 1 completed Nick carroll [facility] 01/18/2023 08:47:28 pneumococcal polysaccharide PPV23 1 completed Nick carroll [facility] 01/18/2023 08:47:28 influenza, unspecified formulation 2 completed Nick Meath null, [facility] 01/18/2023 08:47:28 Pneumococcal conjugate PCV 13 2 completed Nick Meath null, [facility] 01/18/2023 08:47:28 SARS-COV-2 (COVID-19) vaccine, UNSPECIFIED 2 completed Nick Meath null, [facility] 01/18/2023 08:47:28 SARS-COV-2 (COVID-19) vaccine, UNSPECIFIED 2 completed Nick Meath null, [facility] 01/18/2023 08:47:28 pneumococcal, unspecified formulation 0 completed Nick Meath null, [facility] 01/18/2023 08:47:28 influenza, unspecified formulation 2 completed Nick Meath null, [facility] 01/18/2023 08:47:28 Influenza, high-dose, quadrivalent, PF 1 completed Nick Meath null, [facility] 01/12/2023 11:30:11 Influenza, high-dose, quadrivalent, PF 2 completed Nick Meath null, [facility] 01/12/2023 11:30:11 COVID-19, mRNA, LNP-S, PF, 30 mcg/0.3 mL dose 1 completed Nick Meath null, [facility] 01/12/2023 11:30:11 COVID-19, mRNA, LNP-S, PF, 30 mcg/0.3 mL dose 1 completed Nick Meath null, [facility] 01/12/2023 11:30:12 COVID-19, mRNA, LNP-S, bivalent, PF, 30 mcg/0.3 mL dose 2 completed Nick Meath null, [facility] 01/12/2023 11:30:12 pneumococcal polysaccharide PPV23 0 completed Nick Meath null, [facility] 01/12/2023 11:30:12 Novel [id number], all formulations 9 completed Nick Meath null, [facility] 01/12/2023 11:30:12 Pneumococcal conjugate PCV 13 4 completed Nick Meath null, [facility] 01/12/2023 11:30:12 Hep B, unspecified formulation 3 completed Nick Meath null, [facility] 01/12/2023 11:30:12 Hep B, unspecified formulation 3 completed Nick Meath null, [facility] 01/12/2023 11:30:12 Hep B, unspecified formulation 2 completed Nick Meath null, [facility] 01/12/2023 11:30:12 zoster live 2 completed Nick Meath null, [facility] 01/12/2023 11:30:12 Influenza, split virus, trivalent, preservative 2 completed Nick Meath null, [facility] 01/12/2023 11:30:12 Influenza, split virus, trivalent, preservative 0 completed Nick Meath null, [facility] 01/12/2023 11:30:12 Influenza, split virus, trivalent, preservative 1 completed Nick Meath null, [facility] 01/12/2023 11:30:12 Influenza, split virus, trivalent, preservative 3 completed Nick Meath null, [facility] 01/12/2023 11:30:12 Influenza, split virus, trivalent, preservative 8 completed Nick Meath null, [facility] 01/12/2023 11:30:12 Influenza, split virus, trivalent, PF 9 completed Nick Meath null, [facility] 01/12/2023 11:30:12 Td (adult), 5 Lf tetanus toxoid, preservative free, adsorbed 0 completed Nick Meath null, [facility] 01/12/2023 11:30:12 Td (adult), 5 Lf tetanus toxoid, preservative free, adsorbed 0 completed Nick Meath null, [facility] 01/12/2023 11:30:12 Td (adult), 2 Lf tetanus toxoid, preservative free, adsorbed 0 completed Nick Meath null, [facility] 01/12/2023 11:30:12 Td (adult), 2 Lf tetanus toxoid, preservative free, adsorbed 2 completed Nick Meath null, [facility] 01/12/2023 11:30:12 Influenza, split virus, quadrivalent, PF 4 completed Nick Meath null, [facility] 01/12/2023 11:30:12 Past Encounters Encounter ID Performer Location Encounter Start Date Encounter Closed Date Diagnosis/Indication Diagnosis SNOMED-CT Code Diagnosis ICD10 Code Diagnosis Note [id number] Dylan Guerra MD [facility] [place] [address] [place] [address] 03/31/2022 09:01:41 03/31/2022 15:23:10 Lower urinary tract symptoms due to benign prostatic hypertrophy 4941215248 9101 N40.1 [id number] MD Susie [facility] [address] [address] 04/24/2022 15:34:12 05/06/2022 09:03:39 Lower urinary tract symptoms due to benign prostatic hypertrophy 1850933236 9101 N40.1 [id number] Dylan Guerra MD [facility] [address] [address] 06/02/2022 08:30:40 06/02/2022 11:03:53 Lower urinary tract symptoms 195451581 R39.9 [id number] MD Jackie N[facility] [address] [address] 10/28/2022 12:42:45 10/28/2022 13:33:15 Lower urinary tract symptoms 798149698 R39.9 [id number] SUE CHIANGCodinGamepaula [address] [place] [address] 11/01/2023 11:37:15 11/01/2023 12:38:49 Lower urinary tract symptoms 517441867 R39.9 OAB symptoms. [id number] RASHIDA CHAN PA-C [facility] [address] [place] [address],[address] [place] [address] 05/11/2024 14:14:36 05/25/2024 07:26:33 Overactive urinary bladder 732602298 N32.81 Increased frequency of urination 796806529 R35.0 Health Concerns Section Related Observation LastModified by Organization Detai ls LastModified Time None Recorded Concern Status LastModified by Organization Details LastModified Time None Recorded Advance Directives Directive None Recorded Payers Insurance Date Sequence Insurance Name Policy Number Policy Ching Covered Member ID Ching Member ID Guarantor Name 05/25/2024 1 [place] [id number] Ollie Bajwa [id number] Ollie Bajwa 11/01/2023 1 [place] [employer] Ollie Bajwa [id number] Ollie Bajwa 11/01/2023 2 [employer] (MEDICARE SUPPLEMENT) Ollie Bajwa [id number] Ollie Bajwa Notes Date Note Type Note [...] high grade obstruction. Dylan Guerra MD [address] [facility],[address], [place], [address], [facility] 06/02/2022 10:54:10 10/28/2022 text/html This [...] had fairly mild benefit. Dylan Guerra MD [address] [place] [address],[address], [place], [address], [facility] 10/28/2022 14:30:25 11/01/2023 text/html This [...] fairly mild benefit. RASHIDA CHAN PA-C [address] [facility],[address], [place], [address], [facility] 11/01/2023 12:38:25 05/11/2024 text/html 73 [...] and coordinate their care. RASHIDA CHAN PA-C [address] [place] [address],[place] [address], [place], [address], [facility] 05/24/2024 00:35:25
--- OUTSIDE RECORDS SUMMARY | 2024-11-10 00:50 | XMS_ITS | Encounter Summary ---
Author Organization [facility] Address [address] [place] [id number] Care Team Providers Care Mastercam Programmer Name Role Phone Angeles House MD Primary Care Provider Patito Herron DPM, Podiatry /Foot and Ankle Surgery Unavailable Encounter Details Date Type Department Care Team (Late st Contact Info) Description 03/21/2024 MyC Medical Advice [address] [place] [phone] [facility] Social History Tobacco Use Types Packs/Day Years [...] on file Legal Sex Male 3:51 AM [employer] Gender Identity Not on file Sexual Orientation Not on file documented as of this encounter Plan of Treatment Not on file documented as of this encounter Visit Diagnoses Not on filedocumented in this encounter Care Teams Mastercam Programmer Relationship Specialty Start Date End Date Angeles House MD [facility] & [address] [id number] PCP - General Internal Medicine 03/20/23 Patito Herron DPM, Podiatry/Foot and Ankle Surgery [address] [place] [address] Assigned Musculoskeletal Provider 01/14/24 documented as of this encounter
--- OUTSIDE RECORDS SUMMARY | 2024-11-10 00:50 | XMS_ITS | Data Portability ---
Author Organization [place] - [facility] [address] Address [address] [place] [address] Care Team Providers Care Jewel Inspector Name Role Phone ROBERT LAROSE Orthopedic Surgeon STORM BLANCAS Orthopedic Surgeon [phone] [facility] Primary Care Provider Assessment Encounter Date Assessment Date Assessment LastModified by Organization Details LastModified Time 07/17/2020 07/17/2020 Right hip trochanteric bursitis, lumbar grade I spondylolisthesis and degenerative disc disease. He had a cortisone injection on 07/01/20 that did not improve his pain. Patients ability to walk is very limited. We discussed direct admission for steroids and in-patient physical therapy for gait training. Ordering Prednisone, an MRI of the lumbar spine and a walker for when he is d/c from the hospital. I am ordering a walker because the patient has a mobility limitation that significantly impairs his/her mobility-related activities of daily living in the home. The patient is able to safely use the walker and the deficit will be resolved by use of the walker. [email or web address] Not available 07/17/2020 14:45:44 07/24/2020 07/24/2020 Right hip trochanteric bursitis, lumbar grade I spondylolisthesis and degenerative disc disease. MRI of the lumbar spine shows disc herniation in the right L3-L4 neural foramen causing severeforaminal stenosis, compressing the L3 nerve root with mass effect on descending L4 nerve root. He completed a Medrol Dose Pack and had steroids in the hospital which did not improve his pain. Referred him to Dr. Blancas for spine surgery consult. Take Percocet 5 mg - 325 mg acetaminophen 1 tablet PO Q4-6H as needed for pain PRN. [email or web address] Not available 07/24/2020 09:15:53 07/26/2020 07/26/2020 Severe back pain and right leg pain He has difficulty standing He has been to the emergency room and has taken anti-inflammatory occasions including a steroid pack He has had some symptomatic back pain in the past but this severe right leg pain is acute in onset and debilitating He cannot stand or walk for any period of time He has degenerative disc disease which is occasionally symptomatic but now has a large disc herniation with severe right sided L4 radiculopathy We discussed a discectomy to decompress the nerve and remove the disc possibly a small local fusion The risks were discussed with the patient as well as potential outcome but the main objective is to relieve the pressure on that nerve root knowing full well that we will not be able to cure his underlying degenerative disc disease and any discogenic back pain [email or web address] Not available 07/31/2020 07:39:47 08/14/2020 08/14/2020 Severe back pain and right leg pain He has difficulty standing He has been to the emergency room and has taken anti-inflammatory occasions including a steroid pack He has had some symptomatic back pain in the past but this severe right leg pain is acute in onset and debilitating He cannot stand or walk for any period of time He has degenerative disc disease which is occasionally symptomatic but now has a large disc herniation with severe right sided L4 radiculopathy We discussed a discectomy to decompress the nerve and remove the disc possibly a small local fusion The risks were discussed with the patient as well as potential outcome but the main objective is to relieve the pressure on that nerve root knowing full well that we will not be able to cure his underlying degenerative disc disease and any discogenic back pain [email or web address] Not available 08/14/2020 13:53:03 Plan of Treatment Reminders Order Date Submit Date Provider Last Modified By Organization Details Last Modified Time Details Appointments None recorded. Lab None recorded. Referral physical therapist referral - Core stabiliza tion 2020 021 [email or web address] Not available 07:55:55 physical medicine and rehabilit ation referral 2020 021 camryn Blancas MD ([facility]), [address] , [address], [place], [address], 11:46:55 Procedures None recorded. Surgeries None recorded. Imaging MRI, lumbar spine, w/o contrast 2020 021 [email or web address] [facility], [address], [place], [address], 09:28:13 Medication Orders Percocet 5 mg-325 mg tablet 2020 021 [email or web address] Not available 07:55:55 Percocet 5 mg-325 mg tablet 2020 021 [email or web address] Not available 10:06:46 prednison e 5 mg tablet 2020 021 [email or web address] Not available 10:39:11 Patient TargetsNo targets recorded. Patient InstructionsNo instructions recorded. Reason for Referral Physical Medicine And Rehabi litation Referral for Prolapsed lumbar intervertebral disc Referring Physician: Robert Larose, Orthopedic Surgery, Encounter Date: 07/24/2020 Physical Therapist Referral for History of lumbar discectomy Core stabilization Referring Physician: Storm Blancas, Orthopedic Surgery, Encounter Date: 10/09/2020 Results Created Date Observation Date Name Description Value Unit Range Abnormal Flag Note LastModifiedBy Organization Detail LastModifiedTime 07/01/19 21 XR, hip + pelvi s, unila teral , 2 or 3 view No observ ation record ed. [email or web address] In-Office Order Internal Use Only DO Not Attach Compendium DO Not Attach Compendium, Do Not Delete/merge, [id number] 07/01/2020 12:50:48 07/01/19 21 XR, lumba r spine No observ ation record ed. [email or web address] In-Office Order Internal Use Only DO Not Attach Compendium DO Not Attach Compendium, Do Not Delete/merge, [id number] 07/01/2020 12:49:01 Result Notes None recorded. Procedures Surgical History Date Name Laterality Status Provider Name and Address Organization Details Recorded Time 08/15/19 21 Suture/Staple removal completed Susan Cronin, [address] 08/14/2020 13:51:55 08/02/19 21 Orthopaedic Surgery completed Sienna Mock, Wood Pattern Maker [address] 08/01/2020 11:30:02 07/01/19 21 Right Hip Bursa Injection - Paige-Alexsi ak completed Megha Miller, [address] 07/01/2020 12:52:41 Cervical Spine Surgery completed Joyce Sanchez RN [address] 07/26/2020 09:03:06 laminectomy completed Joyce Sanchez RN [address] 07/26/2020 09:03:16 carpal tunnel surgery completed Joyce Sanchez RN [address] 07/26/2020 09:03:33 Imaging Results None recorded. Procedure Notes None recorded. Medical Equipment None Reported. Allergies No known drug allergies Medications Name Sig Start Date Stop Date Status Note LastModified by Organization Details LastModified Time bupropion HCl SR 150 mg tablet,12 hr sustained-r elease TAKE 1 TABLET BY MOUTH TWICE DAILY active Not Available Not Available No t Available benzonatate 200 mg capsule TAKE ONE CAPSULE BY MOUTH THREE TIMES A DAY FOR 10 DAYS 07/17 completed Not Available Not Available Not Available hydrocodone 5 mg-acetamin ophen 325 mg tablet TAKE ONE TABLET BY MOUTH EVERY 4 TO 6 HOURS NEEDED FOR PAIN 07/17 completed Not Available Not Available Not Available meloxicam 15 mg tablet TAKE 1 TABLET BY MOUTH EVERY DAY FOR 21 DAYS 10/09 completed Not Available Not Available Not Available prednisone 5 mg tablet Take 1 tablet every day by oral route for 21 days. 07/25 completed Not Available Not Available Not Available triamcinolo ne acetonide 0.1 % topical cream APPLY TO FOREARMS WHEN ITCHY TWICE DAILY UP TO TWO WEEKS MAX STOP FOR 1 WEEK THEN REPEAT NEEDED active Not Available Not Available No t Available temazepam 15 mg capsule TAKE 1 CAPSULE BY MOUTH EVERY DAY AT BEDTIME active Not Available Not Available No t Available oseltamivir 75 mg capsule TAKE ONE CAPSULE BY MOUTH TWICE A DAY FOR 5 DAYS 07/17 completed Not Available Not Available Not Available methylpredn isolone 4 mg tablets in a dose pack FOLLOW PACKAGE DIRECTION S 07/25 completed Not Available Not Available Not Available Percocet 5 mg-325 mg tablet Take 1 tablet every 6-8 hours by oral route as needed for 7 days. 2020 active Not Available Not Available Not Avai lable amoxicillin 500 mg-katina m clavulanate 125 mg tablet TAKE 1 TABLET BY MOUTH EVERY 12 HOURS 10/09 completed Not Available Not Available Not Available ezetimibe 10 mg tablet TK 1 T PO D active Not Available Not Available No t Available rosuvastati n 5 mg tablet TK 1 T PO D active Not Available Not Available No t Available diclofenac 1 % topical gel APPLY 2 GRAMS TO AFFECTED AREA FOUR TIMES A DAY 07/26 completed Not Available Not Available Not Available Suprep Bowel Prep Kit 17.5 gram-3.13 gram-1.6 gram oral solution Take as directed 10/09 completed Not Available Not Available Not Available TDVAX 2 Lf unit-2 Lf unit/0.5 mL intramuscul ar suspension 07/25 completed Not Available Not Available Not Available Vitals Date Recorded Body height Body mass index (BMI) Body weight Respiratory rate Provider Name and Address Organization Details Last Updated DateTime 07/17/2020 175.26 cm 29.5 kg/m2 83675.47 g 18 /min Ashley Ham [facility] [place] 07/17/2020 14:21:08 Date Recorded Body height Body mass index (BMI) Body weight Respiratory rate Provider Name and Address Organization Details Last Updated DateTime 07/24/2020 175.26 cm 29.5 kg/m2 52096.47 g 18 /min Ashley Ham [facility] [place] 07/24/2020 08:47:29 Date Recorded Body height Body mass index (BMI) Body weight Provider Name and Address Organization Details Last Updated DateTime 07/26/2020 175.26 cm 29.5 kg/m2 93058.47 g Joyce Sanchez RN [facility] [place] 07/26/2020 09:01:54 Date Recorded Body height Body mass index (BMI) Body weight Provider Name and Address Organization Details Last Updated DateTime 08/14/2020 175.26 cm 29.5 kg/m2 20624.47 g Alan Taylor [facility] [place] 08/14/2020 13:46:15 Date Recorded Body height Body mass index (BMI) Body weight Provider Name and Address Organization Details Last Updated DateTime 10/09/2020 175.26 cm 28.1 kg/m2 38900.55 terri Henry, Circular Head Saw Operator Cert [address] 10/09/2020 10:23:07 Social History Question Answer Notes LastModified by Organizat ion Details LastModified Time Tobacco Smoking Status Never Smoker Ashley Meléndezporsha carroll, [address] 07/01/2020 12:31:23 Auto Related Injury? No Information not available 07/01/2020 Which Of Your Hands Is Dominant? Bilateral Information not available 07/01/2020 Marital Status Informatio n not available 07/01/2020 Seat Belts Used Routinely Yes cobenhaus Information not available 07/26/2020 Work Related Injury? No Information not available 07/01/2020 Sex: Unknown Functional Status Question Answer Note LastModified by Organizat ion Details LastModified Time What is your level of alcohol consumption? Occasional Information not available 07/01/2020 Mental Status None recorded. Family History Relationship Description Onset Age of this Age Resolved Age Notes LastModified by Organization Details LastModified Time Father No current problems or disability bcorrell Not available 07/01 12:31:09 Mother No current problems or disability bcorrell Not available 07/01 12:31:09 Notes:patient denies any fam rebecca history Medical History Condition Response High Cholesterol Y Past Encounters Encounter ID Performer Location Encounter Start Date Encounter Closed Date Diagnosis/Indication Diagnosis SNOMED-CT Code Diagnosis ICD10 Code Diagnosis Note [id number] Robert Larose MD [address] [place] [address] 07/01/2020 11:09:57 07/01/2020 13:09:42 Pain of right hip joint 2243361057 40341 M25.551 Lumbar spondylolisthesis 4874077914 61528 M43.16 Degenerati on of lumbar intervertebral disc 62153777 M51.36 Trochanter ic bursitis of right hip 6467679125 68955 M70.61 [id number] Robert Larose MD [address] [place] [address] 07/17/2020 13:55:48 07/17/2020 14:43:50 Lumbar spondylolisthesis 9825803513 59139 M43.16 Degenerati on of lumbar intervertebral disc 24996625 M51.36 Trochanter ic bursitis of right hip 4104219918 19385 M70.61 [id number] Robert Larose MD [address] [place] [address] 07/24/2020 08:36:22 07/24/2020 09:20:16 Lumbar spondylolisthesis 2328218417 82455 M43.16 Degenerati on of lumbar intervertebral disc 86084422 M51.36 Trochanter ic bursitis of right hip 7180875479 28839 M70.61 Prolapsed lumbar intervertebral disc 868973534 M51.26 [id number] STORM BLANCAS MD [address] [facility] [address] [place] [address] 07/26/2020 08:42:10 07/26/2020 09:24:14 Sciatica 20988280 M54.31 Pain of hip region 58309 002 M25.551 History of cervical spine fusion 4106956045 101 Z98.1 Low back pain 811211380 M54.5 Arthritis of facet joint of lumbar spine 0358677282 2844093 M46.86 Narrowing of intervertebral disc space 99850539 M99.79 Degenerati on of lumbar intervertebral disc 28446043 M51.36 Prolapsed lumbar intervertebral disc 440304827 M51.26 Spinal stenosis 33275106 M48.062 History of lumbar laminectomy 5972153272 9710245 Z98.890 [id number] STORM BLANCAS MD [address] [facility] [address] [place] [address] 08/14/2020 13:10:14 08/14/2020 13:55:00 Low back pain 428599244 M54.5 History of lumbar laminectomy 8242116142 1523000 Z98.890 Sciatica 07952676 M54.31 Arthritis of facet joint of lumbar spine 5080057783 3623437 M46.86 Narrowing of intervertebral disc space 87614654 M99.79 Degenerati on of lumbar intervertebral disc 16776346 M51.36 Spinal stenosis 54674059 M48.062 Pain of hip region 09866 002 M25.551 History of cervical spine fusion 1469091661 101 Z98.1 History of lumbar discectomy 4887970776 6081371 Z98.890 [id number] STORM BLANCAS MD [address] [place] [address] 10/09/2020 09:44:22 10/09/2020 10:52:13 Low back pain 396166063 M54.5 History of lumbar laminectomy 2823594960 4180546 Z98.890 History of lumbar discectomy 4075030475 4988556 Z98.890 Sciatica 56478957 M54.31 Arthritis of facet joint of lumbar spine 9179186197 0561750 M46.86 Narrowing of intervertebral disc space 33181475 M99.79 Degenerati on of lumbar intervertebral disc 53176061 M51.36 Spinal stenosis 99058491 M48.062 Pain of hip region 81267 002 M25.551 History of cervical spine fusion 3896545075 101 Z98.1 Health Concerns Section Related Observation LastModified by Organization Detai ls LastModified Time None Recorded Concern Status LastModified by Organization Details LastModified Time None Recorded Advance Directives Directive None Recorded Payers Insurance Date Sequence Insurance Name Policy Number Policy Ching Covered Member ID Ching Member ID Guarantor Name 10/09/2020 2 [employer] Ollie Patiño [id number] Ollie Patiño 10/09/2020 1 [place] Ollie Patiño [id number] Ollie Patiño 10/09/2020 2 [employer] (MEDICARE SUPPLEMENT) Ollie Patiño [id number] Ollie Patiño Notes Date Note Type Note Provider Name and Address Organization Details Recorded Time 07/17/2020 text/html Back PainReporte d bypatient.Location:abel n radiating to the buttocks;pain radiating to the legs Quality:dull Severity:improving Duration:chronic Context:prior back problems Alleviating Factors:rest; relieved by changing position Aggravating Factors:movement/posit ioning Associated Symptoms:no fever; no weak limbs; no numbness of the legs/feet; no tingling; no incontinence; no shortness of breathHip(s)Reported bypatient.Location:rig ht Quality:aching; gnawing; frequent; worsening Severity:moderate; pain level 4/10 Duration:2 weeks Timing:acute Context:sports injury; golfing Alleviating Factors:heat; rest; limited weight bearing; NSAIDs (ibuprofen) Aggravating Factors:walking; twisting; bending/squatting; ROM; weightbearing Associated Symptoms:no weakness; no numbness; no tingling; no swelling; no redness; no warmth; no ecchymosis; no catching/locking; no popping/clicking; no buckling; no grinding; no instability; no drainage; no fever; no chills; no weight loss; no change in bowel/bladder habits;radiation down leg Previous Surgery:none Prior Imaging:x ray ([facility]: 07/01/20) Previous Injections:did not help; cortisone injection 07-01-20 Previous PT:none Work Related:no Working:no 70 year old male here today for follow up of right hip trochanteric bursitis, lumbar grade I spondylolisthesis and degenerative disc disease. Patient was prescribed Mobic 15 mg 1 tablet PO daily with breakfast x21 days. He had a cortisone injection into the right hip bursa. The pain in the lateral side of his hip improved however there is a new complaint of pain in the right groin. It radiates down his lower extremity into the lateral aspect of the knee. He can only walk one or two steps without feeling like his hip is going to give out. Patient denies any numbness or tingling in his RLE. I reviewed past medical, surgical, social and family history as documented in the chart. There are no significant changes except as noted in the HPI. Referred by Dr. Olsen. Robert Larose MD [address] [place] [address], [address], [place] - [facility] [place] 07/18/2020 13:07:07 07/24/2020 text/html Back PainReporte d bypatient.Location:abel n radiating to the buttocks;pain radiating to the legs Quality:sharp Severity:worsening Duration:chronic Context:prior back problems Alleviating Factors:rest; relieved by changing position Aggravating Factors:movement/posit ioning Associated Symptoms:no fever; no weak limbs; no numbness of the legs/feet; no tingling; no incontinence; no shortness of breathHip(s)Reported bypatient.Location:rig ht Quality:aching; gnawing; frequent; worsening Severity:moderate; pain level 4/10 Duration:2 weeks Timing:acute Context:sports injury; golfing Alleviating Factors:heat; rest; limited weight bearing; NSAIDs (ibuprofen) Aggravating Factors:walking; twisting; bending/squatting; ROM; weightbearing Associated Symptoms:no weakness; no numbness; no tingling; no swelling; no redness; no warmth; no ecchymosis; no catching/locking; no popping/clicking; no buckling; no grinding; no instability; no drainage; no fever; no chills; no weight loss; no change in bowel/bladder habits;radiation down leg Previous Surgery:none Prior Imaging:x ray ([facility]: 07/01/20) Previous Injections:did not help; cortisone injection 07-01-20 Previous PT:none Work Related:no Working:no 70 year old male here today for follow up of right hip trochanteric bursitis, lumbar grade I spondylolisthesis and degenerative disc disease. Patient was last seen in office on 07/17/20. At that time, he was sent to the ED and admitted for pain management. Patient had an MRI of his lumbar spine and hip while in the hospital. He was prescribed a Medrol Dose pack when he was discharged. He is still in a significant amount of pain. It limits his ability to walk. I reviewed past medical, surgical, social and family history as documented in the chart. There are no significant changes except as noted in the HPI. Robert Larose MD [address] [place] [address], [id number], [place] - [facility] [place] 07/24/2020 12:56:08 07/26/2020 text/html Hip(s)Reported bypatient.Location:rig ht Quality:aching; constant; worsening Severity:pain level 10/10; worst pain 10/10 Duration:date of onset: (06/25/20); continuous since onset; Chronic, worse since 06/25/20 Timing:acute; chronic Context:overuse Alleviating Factors:sitting; lying down; position change; heat; rest; exercise (Home); stretching; limited weight bearing; narcotics (Oxycodone); NSAIDs (Meloxicam); cortisone injection (07/01/20 Rt Hip) Aggravating Factors:standing; walking; lifting; carrying; twisting; bending/squatting; pushing/pulling; ROM; weightbearing; exercise Associated Symptoms:no numbness; no tingling; no swelling; no redness; no warmth; no ecchymosis;weakness;ra diation down leg(RLE) Previous Surgery:none Prior Imaging:x ray ([facility] 07/01/20) Previous Injections:helped temporarily (Rt 07/01/20) Previous PT:none Work Related:noL-spineRepor joaquin bypatient.Location:mikhail ateral Quality:aching; constant; worsening Severity:severe; pain level 10/10; worst pain 10/10 Duration:date of onset: (06/25/20); continuous since onset; Many years, but worse since 06/25/20 Timing:acute; chronic Context:overuse Alleviating Factors:sitting; lying down; position change; heat; rest; exercise (Home); stretching; limited weight bearing; narcotics (Oxycodone); NSAIDs (Meloxicam); previous surgery Aggravating Factors:standing; walking; lifting; carrying; twisting; bending/squatting; ROM; weightbearing; exercise; getting out of bed; going from sit to stand Associated Symptoms:no numbness; no tingling; no swelling; no redness; no warmth; no ecchymosis;weakness;ra diation down leg(RLE) Previous Surgery:surgical procedure: (Lumbar laminectomy 2001) Prior Imaging:x ray ([facility] 07/01/20); MRI ([facility] 07/18/20) Previous Injections:none Previous PT:none Work Related:no STORM BLANCAS MD [address], [place], [address], [facility] - [facility] [place] 07/31/2020 07:39:55 08/14/2020 text/html L-spineReported bypatient.Location:mikhail ateral Quality:aching; constant; improving Severity:mild; pain level 2/10 Duration:date of onset: (06/25/20); continuous since onset; Many years, but worse since 06/25/20 Timing:acute; chronic Context:overuse Alleviating Factors:sitting; lying down; position change; heat; rest; exercise (Home); stretching; limited weight bearing; previous surgery Aggravating Factors:standing; walking; lifting; carrying; twisting; bending/squatting; ROM; weightbearing; exercise; getting out of bed; going from sit to stand Associated Symptoms:no numbness; no tingling; no swelling; no redness; no warmth; no ecchymosis;weakness;ra diation down leg(RLE) Previous Surgery:surgical procedure: (Lumbar laminectomy 2001) Prior Imaging:x ray ([facility] 07/01/20); MRI ([facility] 07/18/20) Previous Injections:none Previous PT:none Work Related:no STORM BLANCAS MD [address], [place], [address], [facility] - [facility] [place] 08/16/2020 13:57:10 10/09/2020 text/html L-spineReported bypatient.Location:mikhail ateral Quality:sharp Severity:mild; pain level 2/10 Duration:date of onset: (06/25/20); continuous since onset; Many years, but worse since 06/25/20 Timing:acute; chronic Context:overuse Alleviating Factors:sitting; lying down; position change; heat; rest; exercise (Home); stretching; limited weight bearing; previous surgery Aggravating Factors:standing; walking; lifting; carrying; twisting; bending/squatting; ROM; weightbearing; exercise; getting out of bed; going from sit to stand Associated Symptoms:no numbness; no tingling; no swelling; no redness; no warmth; no ecchymosis;weakness;ra diation down leg(RLE) Previous Surgery:surgical procedure: (Lumbar laminectomy 2001) Prior Imaging:x ray ([facility] 07/01/20); MRI ([facility] 07/18/20) Previous Injections:none Previous PT:none Work Related:no STORM BLANCAS MD [address], [place], [address], [facility] - [facility] [place] 10/09/2020 12:27:55
--- OUTSIDE RECORDS SUMMARY | 2024-11-10 00:50 | XMS_ITS | Encounter Summary ---
Author Organization [facility] Address [address] [place] [id number] Care Team Providers Care Concession Cashier Name Role Phone Kyle Benitez MD Primary Care Provider Angeles House MD Primary Care Provider Patito HerronM, Podiatry /Foot and Ankle Surgery Unavailable Reason for Visit * Reason Onset Date Comments Results 11/16/2014 Encounter Details Date Type Department Care Team (Late st Contact Info) Description 11/16/2014 [facility] Medical Advice [address] [place] [address] Kyle Benitez MD XXX RESIGNED XXX [address] [facility] [address] [place] [address] Results Social History Tobacco Use Types Packs/Day Years Used Date Smoking Tobacco: Never Smokeless Tobacco: Never Alcohol Use Standard Drinks/Week Comments Yes 0 (1 standard drink = 0.6 oz pur e alcohol) infrequent, social Sex and Gender Information Value Date Recorded Sex Assigned at Not on file 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 He is concerned about highcholesterol and asking Dr. Benitez to review and advise. documented in this encounter Plan of Treatment Not on file documented as of this encounter Visit Diagnoses Not on filedocumented in this encounter Care Teams Concession Cashier Relationship Specialty Start Date End Date Kyle Benitez MD PCP - General Internal Medicine 10/17/14 07/01/17 Angeles House MD [facility] - [address] [id number] PCP - General Internal Medicine 03/20/23 Patito Herron DPM, Podiatry/Foot and Ankle Surgery [address] [place] [address] Assigned Musculoskeletal Provider 01/14/24 documented as of this encounter
== END 2024-11-09 07:56 | disposition home or self-care (01) ==
LOC: OP CLINIC 07:55
PROVIDERS: PCP Internal Medicine; Visit Provider Surgery
DX: Z12.11 Encounter for screening for malignant neoplasm of colon (principal); Z86.0100 Personal history of colon polyps, unspecified; D12.3 Benign neoplasm of transverse colon; D12.2 Benign neoplasm of ascending colon; K64.8 Other hemorrhoids
CPT/HCPCS: 00811; 45381; 45385; 88305; 99100; J2704